=== PATIENT | male | born 1985 | race Caucasian/White ===

== ENCOUNTER 2020-01-17 11:17 | Inpatient (IN) | payer OTHER ==
--- NOTE | 2020-01-17 12:14 | BHS.RME ---
Substance Use & Tx History - Substance Use History Alcohol Substance amount: 6 beers Frequency of use: Daily Substance route: Oral Date of Last Use: 01/16/20 Opiates (Heroin) Substance amount: 3 bags Frequency of use: Daily Substance route: Injection (ex: intravenous or skin popping) Date of Last Use: 01/16/20 Cocaine (Crack) Substance amount: $50 Frequency of use: Daily Substance route: Smoking Date of Last Use: 01/23/20 Cannabis Substance amount: 1 blunt Frequency of use: Less than 3 times per week Substance route: Smoking Date of Last Use: 01/16/20 Cannabis (Synthetic) Substance amount: $20 Frequency of use: Daily Substance route: Smoking Date of Last Use: 01/16/20 Physical/Psych/Mental Status - Behavior General Behavior: Increased activity (restlessness, agitation) Eye Contact: Normal - Cooperativeness Cooperativeness: Cooperative - Thinking Thought Processes: Tight, Goal Directed, Circumstantial Thought content: Future oriented - Physical Health Problems Is patient presently having any pain?: No Does patient presently have any injuries (include location): No Does patient currently have a fever: No Is patient : No
--- NOTE | 2020-01-17 14:05 | HP ---
CIWA Score Nausea/Vomitin-Mild Nausea/No Vomiting Muscle Tremors: 3 Anxiety: 3 Agitation: 3 Paroxysmal Sweats: 1-Minimal Palms Moist Orientation: 0-Oriented Tacttile Disturbances: 1-Very Mild Itch/Numbness Auditory Disturbances: 1-Very Mild Visual Disturbances: 1-Very Mild Sensitivity Headache: 1-Very Mild CIWA-Ar Total Score: 15 - Admission Criteria OASAS Guidelines: Admission for Medically Managed Detox: Requires at least one of the followin. CIWA greater than 12 2. Seizures within the past 24 hours 3. Delirium tremens within the past 24 hours 4. Hallucinations within the past 24 hours 5. Acute intervention needed for co occurring medical disorder 6. Acute intervention needed for co occurring psychiatric disorder 7. Severe withdrawal that cannot be handled at a lower level of care (continued vomiting, continued diarrhea, abnormal vital signs) requiring intravenous medication and/or fluids 8. Admitting History and Physical - Admission Chief Complaint: " I want to stop using drugs and I can't take it anymore." History of Present Illness: 34 year old male with history of opioid dependence , alcohold dependence and crack use disorder, cannabis use disorder and K2 use disorder. He was here in 09/18 and didn't qualify for admission and was sent home Alcohol: 6 beers daily started age 13 and last used 01/16/20 8PM. 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 Heroin 3 bags of heroin daily, intravenously started at age 11 and last used 01/16/20 10AM. He overdosed 6 years ago. Crack: $50 daily smoking since age 18 and last used 01/16/20 at 9Pm Marijuana: 2x/wk 1 blunt, since age 14 and last used yesterday K2: $20 daily smoking since 2009 and last used yesterday. Nicotine: 1 pack daily since age 14 PMH: Asthma, HCVI untreated. Psurge accid Left leg repaired tendon and never 2011 Psych: Depression, Schizophrenia non-compliant last took meds 5 years ago Urinetox: positive for suboxone which he states he bought on the street in attempt to stop using. He meets critera for admission do to his co-morbid psychiatric illness and multiple medical problems. He also has poor environment for recovery as he is homeless. History Source: Patient Limitations to Obtaining History: No Limitations - Past Medical History Pulmonary: Yes: Asthma Hepatobiliary: Yes: Hepatitis C Psych: Yes: Depression, Schizophrenia - Past Surgical History Additional Past Surgical History: left leg repair of tendon and never in 2012 - Smoking History Smoking history: Current every day smoker Have you smoked in the past 12 months: Yes Aproximately how many cigarettes per day: 10 - Alcohol/Substance Use Hx Alcohol Use: No History of Substance Use: reports: Cocaine, Heroin, Marijuana, Tranquilizers - Social History Usual Living Arrangement: Yes: Alone Do you think of yourself as: Straight/Heterosexual ADL: Independent 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 Loss EENT: reports: No Symptoms Reported Respiratory: reports: No Symptoms reported Cardiac: reports: No Symptoms Reported GI: reports: No Symptoms Reported : reports: No Symptoms Reported Musculoskeletal: reports: No Symptoms Reported Integumentary: reports: No Symptoms Reported Neuro: reports: No Symptoms reported Endocrine: reports: No Symptoms Reported Hematology: reports: No Symptoms Reported Psychiatric: reports: Judgement Intact, Mood/Affect Appropiate, Orientated x3, Agitated, Anxious, Depressed Other Systems: Reviewed and Negative Patient History - Patient Medical History Hx Asthma: Yes Hx Chronic Obstructive Pulmonary Disease (COPD): No Hx Cardiac Disorders: No Hx Hypertension: No Hx Seizures: No Hx Diabetes: No Hx Gastrointestinal Disorders: No Hx Genitourinary Disorders: No Hx Sexually Transmitted Disorders: No Hx Renal Disease (ESRD): No Hx Depression: Yes Hx Suicide Attempt: Yes (Tried to cut his L arm in 2016) Hx Schizophrenia: No - Patient Surgical History Past Surgical History: No - PPD History Previous Implant?: Yes Documented Results: Negative w/o proof Implanted On Prior [facility] Admission?: No PPD to be Administered?: Yes - Smoking Cessation Smoking history: Current every day smoker Have you smoked in the past 12 months: Yes Aproximately how many cigarettes per day: 10 Hx Chewing Tobacco Use: No Initiated information on smoking cessation: Yes 'Breaking Loose' booklet given: 01/17/20 - Substances abused Alcohol Substance route: Oral Frequency: Daily Amount used: 6 beers Age of first use: 13 Date of last use: 01/16/20 Heroin Substance route: Injection Frequency: Daily Amount used: 3 bags Age of first use: 11 Date of last use: 01/16/20 Crack Substance route: Smoking Frequency: Daily Amount used: $50 Age of first use: 18 Date of last use: 01/16/20 Marijuana/Hashish Substance route: Smoking Frequency: 1-2 times per week Amount used: 1 bag Age of first use: 14 Date of last use: 01/16/20 K2/Spice Substance route: Smoking Frequency: Daily Amount used: $20 Age of first use: 24 Date of last use: 01/16/20 Admission Physical Exam BHS - Vital Signs Vital Signs: Vital Signs - 24 hr 01/17/20 01/17/20 12:26 13:06 Temperature 97.2 F L 97.2 F L Pulse Rate 87 87 Respiratory 19 19 Rate Blood Pressure 133/75 133/75 - Physical General Appearance: Yes: Moderate Distress, Irritable, Sweating, Anxious HEENTM: Yes: EOMI, Hearing grossly Normal, Normal ENT Inspection, Normocephalic, Normal Voice, [place], Pharynx Normal, Tm's normal Respiratory: Yes: Chest Non-Tender, Lungs Clear, Normal Breath Sounds, No R espiratory Distress, No Accessory Muscle Use Neck: Yes: No masses,lesions,Nodules, Supple, Trachea in good position Breast: Yes: Within Normal Limits Cardiology: Yes: Regular Rhythm, Regular Rate, S1, S2 Abdominal: Yes: Non Tender, Flat, Soft, Increased Bowel Sounds Genitourinary: Yes: Within Normal Limits Back: Yes: Normal Inspection Musculoskeletal: Yes: full range of Motion, Gait Steady, Pelvis Stable Extremities: Yes: Normal Capillary Refill, Normal Inspection, Normal Range of Motion, Non-Tender Neurological: Yes: automation qtp tester II-XII NML intact, Fully Oriented, Alert, Motor Strength 5/5, Normal Mood/Affect, Normal Response Integumentary: Yes: Normal Color, Dry, Warm Lymphatic: Yes: Within Normal Limits - Diagnostic (1) Opioid dependence with withdrawal Current Visit: Yes Status: Acute (2) Cocaine use disorder Current Visit: Yes Status: Acute (3) Alcohol dependence with withdrawal Current Visit: Yes Status: Acute (4) Hepatitis C antibody test positive Current Visit: Yes Status: Acute (5) Depression Current Visit: Yes Status: Acute (6) Schizophrenia Current Visit: Yes Status: Acute Screened but not Admitted - Documentation of Visit Screened but not Admitted: No Breathalyzer - Breathalyzer Breathalyzer: 0 Urine Drug Screen - Test Device Lot number: [id number] Expiration date: 06/29/21 - Control Is test valid?: Yes - Results Drug screen NEGATIVE: No Urine drug screen results: CICI-Cocaine, FEN-Fentanyl, MOP-Opiates, BZO- Benzodiazepines, BUP-Suboxone Inpatient Rehab Admission - Rehab Decision to Admit Inpatient rehab admission?: No
[2020-01-17] MEDS ORDERED: NICOTINE POLACRILEX 2 MG GUM BUC PRN (14:11)
[2020-01-17] MEDS ORDERED: MENTHOL/PHENOL 1 EACH UD MM PRN (14:11)
[2020-01-17] MEDS ORDERED: METHADONE HCL 10 MG TABLET (FOR DETOX USE ONLY) PO ONE (14:11)
[2020-01-17] MEDS ORDERED: ONDANSETRON *ODT* 4 MG TABLET SL ONE (14:11)
[2020-01-17] MEDS ORDERED: IBUPROFEN 400 MG TABLET (FP) PO PRN (14:11)
[2020-01-17] MEDS ORDERED: MAGNESIUM CITRATE 300 ML BOTTLE PO PRN (14:11)
[2020-01-17] MEDS ORDERED: MAG HYDROX/AL HYDROX/SIMETH 30 ML UNIT-DOSE CUP PO PRN (14:11)
[2020-01-17] MEDS ORDERED: BISMUTH SUBSALICYLATE 524 MG/30 ML UD PO PRN (14:11)
[2020-01-17] MEDS ORDERED: MAGNESIUM HYDROX 2400MG/30ML ORAL SUSPENSION 30 ML CUP PO PRN (14:11)
[2020-01-17] MEDS ORDERED: cloNIDine HCL 0.1 MG TABLET PO PRN (14:11)
[2020-01-17] MEDS ORDERED: ACETAMINOPHEN 325 MG TABLET (FP) PO PRN ×2 (14:11)
[2020-01-17] MEDS: PRENATAL VITAMINS W/ FOLIC ACID TABLET (FP) PO SCH (14:56)
--- NOTE | 2020-01-17 14:58 | PN ---
[facility] Progress Note Note: Vital Signs Temperature 97.9 F 01/17/20 14:52 Pulse Rate 50 L 01/17/20 14:52 Respiratory Rate 16 01/17/20 14:52 Blood Pressure 117/64 01/17/20 14:52 O2 Sat by Pulse Oximetry (%) 98 01/17/20 14:52 alerted by staff to low HR interviewed pt, has withdrawal sx: back pain no hx of cardiac disease initially seated then ambulating to window for medication Exam: Pulse is regular, slow mentation: nl gait: steady Impression: bradycardia Plan: will continue to monitor vitals bradycardia may relate to recent heroin use
[2020-01-17] MEDS: NICOTINE 7 MG/24 HOURS TOPICAL PATCH TD SCH (15:02)
--- NOTE | 2020-01-17 16:45 | CONSULT ---
[facility] Psychiatric Consult - Data Date of interview: 01/17/20 Admission source: [facility] Identifying data: Second visit to [facility] and admission to [address] [place] [address] for this 34 y/o [place] male self-referred for detoxification treatment. SARAH issues : cannabis/K2, cocaine, heroin, nicotine, alcohol, benzodiazepine (clonazepam). Patient is single, a father of one, homeless, unemployed and supported on food stamps. Substance Abuse History: Discussed with the patient. SARAH profile as follows : Smoking history: Current every day smoker. Have you smoked in the past 12 months: Yes. Aproximately how many cigarettes per day: 10. Hx Chewing Tobacco Use: No. Initiated information on smoking cessation: Yes. 'Breaking Loose' booklet given: 01/17/20. - Substances abused. Alcohol. Substance route: Oral. Frequency: Daily. Amount used: 6 beers. Age of first use: 13. Date of last use: 01/16/20. Heroin. Substance route: Injection. Frequency: Daily. Amount used: 3 bags. Age of first use: 11. Date of last use: 01/16/20. Crack. Substance route: Smoking. Frequency: Daily. Amount used: $50. Age of first use: 18. Date of last use: 01/16/20. Marijuana/Hashish. Substance route: Smoking. Frequency: 1-2 times per week. Amount used: 1 bag. Age of first use: 14. Date of last use: 01/16/20. K2/Spice. Substance route: Smoking. Frequency: Daily. Amount used: $20. Age of first use: 24. Date of last use: 01/16/20 Medical History: Medical profile is remarkable for hepatitis C (untreated), bronchial and antecedent of surgery for serious injuries to left leg (tendon repair) sustained in kicking a glass door (2011). Reported allergy to ASA. Psychiatric History: Patient endorses a history of multiple psychiatric hospitalizations in his elim ira [facility] ([facility] No hospitalization in the [facility]. Mr Espinoza states that he got diagnosed with MDD and Anxiety Disorder. He used to be prescribed a regimen of bupropion + clonazepam + restoril in the past. NOT taken for past 3-5 years (as per self- report). Patient reports total non-adherence to follow-up. He has been self- medicating with suboxone (bought in the streets). No reported history of suicide attempts. Physical/Sexual Abuse/Trauma History: Patient denies history of abuse. Additional Comment: Urine drug screen results: CICI-Cocaine, FEN-Fentanyl, MOP- Opiates, BZO-Benzodiazepines, BUP-Suboxone. Noted. Mental Status Exam - Mental Status Exam Alert and Oriented to: Time, Place, Person Cognitive Function: Good Patient Appearance: Unkempt, Disheveled (covered with tattoos : upper extremities) Mood: Nervous, Anxious Affect: Appropriate, Mood Congruent Patient Behavior: Fatigued, Appropriate, Cooperative Speech Pattern: Clear, Appropriate Voice Loudness: Normal Thought Process: Goal Oriented Thought Disorder: Not Present Hallucinations: Denies Suicidal Ideation: Denies Homicidal Ideation: Denies Insight/Judgement: Poor Sleep: Poorly, Difficulty falling asleep Appetite: Good Gait/Station: Normal Psychiatric Findings - Problem List ([place] 1, 2,3) (1) Alcohol dependence with withdrawal Current Visit: Yes Status: Acute (2) Opioid dependence with withdrawal Current Visit: Yes Status: Acute (3) Cocaine use disorder Current Visit: Yes Status: Chronic (4) Cannabis abuse Current Visit: Yes Status: Chronic (5) Nicotine dependence Current Visit: Yes Status: Chronic (6) Substance induced mood disorder Current Visit: Yes Status: Chronic (7) History of depression Current Visit: Yes Status: Chronic Comment: As per self-report. Off medications for past 3-5 years. (8) Insomnia Current Visit: Yes Status: Chronic - Initial Treatment Plan Initial Treatment Plan: Psychoeducation. Sleep hygiene. Detoxification initiated. Support and reassurance provided to the patient. AA/NA meetings. Insomnia is addressed with melatonin at bedtime. Patient is in agreement with this plan of care. Observation.
[2020-01-17 17:07] LABS: HEMATOCRIT 41.4 % (35.4-49); HEMOGLOBIN 13.5 GM/dL (11.7-16.9); MCHC 32.5 g/dl (32.0-35.9); MEAN CELL VOLUME 89.3 fl (80-96); MEAN PLT VOLUME 8.3 fl (7.5-11.1); PLATELET COUNT 323 K/MM3 (134-434); RBC 4.64 M/mm3 (4.00-5.60)
[2020-01-17 17:10] LABS: ALBUMIN 3.7 g/dl (3.4-5.0); BILIRUBIN,TOTAL 0.3 mg/dL (0.2-1); BLOOD UREA NITROGEN 16.4 mg/dL (7-18); CALCIUM 9.2 mg/dL (8.5-10.1); CREATININE 0.9 mg/dL (0.55-1.3); POTASSIUM 4.3 mmol/L (3.5-5.1); TOT PROT 7.2 g/dl (6.4-8.2)
[2020-01-17] MEDS: chlordiazePOXIDE HCL 25 MG CAPSULE PO SCH ×2 (18:09→23:12)
[2020-01-17] MEDS: hydrOXYzine PAMOATE 25 MG CAPSULE (FP) PO SCH ×2 (18:09→23:01)
--- NOTE | 2020-01-17 22:30 | PN ---
S Progress Note Note: Patient c/o sweating and feeling ill. Admitted earlier for opioid and alcohol detox. Patient w/ current hx suboxone treatment and admitted w/ + MOP/FEN/CICI/BZO/BUP. PMH: Asthma Denies chest pain/SOB OBS: Pupils = 5 mm Perfuse diaphoresis Hyperactive bowel sounds. HR: 54 No edema. Vital Signs - 24 hr 01/17/20 01/17/20 01/17/20 12:26 13:06 14:52 Temperature 97.2 F L 97.2 F L 97.9 F Pulse Rate 87 87 50 L Respiratory 19 19 16 Rate Blood Pressure 133/75 133/75 117/64 O2 Sat by Pulse 98 Oximetry (%) 01/17/20 01/17/20 16:37 21:16 Temperature 98.2 F 98.2 F Pulse Rate 54 L 59 L Respiratory 18 18 Rate Blood Pressure 119/64 124/65 O2 Sat by Pulse 99 Oximetry (%) Stat EKG: Shows: Sinus Bradycardia (49) w/ sinus arrhythmia and Septal Infarct: age undetermined. Plan: D/C Vistaril. Monitor v/s Q1H x 4 and notify Provider if HR decreases below 49. Hold next dose of Librium 50 mg. Give 25 mg instead. Reviewed respiratory hygiene.
[2020-01-17] MEDS: chlordiazePOXIDE HCL 25 MG CAPSULE PO PRN (23:10)
[2020-01-17] MEDS: THIAMINE HCL 100 MG TABLET (FP) PO SCH (23:11)
[2020-01-17] MEDS: MELATONIN 5 MG TABLETS PO SCH (23:12)
[2020-01-18] MEDS: chlordiazePOXIDE HCL 25 MG CAPSULE PO SCH ×4 (05:18→22:07)
[2020-01-18] MEDS ORDERED: METHADONE HCL 5 MG TABLET (FOR DETOX USE ONLY) ONE (09:31)
[2020-01-18] MEDS ORDERED: METHADONE HCL 10 MG TABLET (FOR DETOX USE ONLY) ONE (09:31)
[2020-01-18] MEDS ORDERED: METHADONE (DETOX) 20 MG, METHADONE (DETOX) 5 MG PO ONE (10:00)
[2020-01-18] MEDS: PRENATAL VITAMINS W/ FOLIC ACID TABLET (FP) PO SCH (10:14)
[2020-01-18] MEDS: NICOTINE 7 MG/24 HOURS TOPICAL PATCH TD SCH (10:16)
--- NOTE | 2020-01-18 11:04 | PN ---
S CIWA - CIWA Score Nausea/Vomitin-No Nausea/No Vomiting Muscle Tremors: None Anxiety: 3 Agitation: 0-Normal Activity Paroxysmal Sweats: 3 Orientation: 0-Oriented Tacttile Disturbances: 0-None Auditory Disturbances: 0-None Visual Disturbances: 0-None Headache: 2-Mild CIWA-Ar Total Score: 8 BHS Progress Note (SOAP) Subjective: c/o sweats, headache, and anxiety. Objective: 01/18/20 11:03 Vital Signs 01/18/20 01/18/20 01/18/20 04:11 06:30 08:44 Temperature 98.0 F 98.4 F Pulse Rate 51 L 58 L Respiratory 16 18 16 Rate Blood Pressure 114/69 120/65 O2 Sat by Pulse 97 Oximetry (%) Laboratory Last Values WBC 10.0 K/mm3 (4.0-10.0) 01/17/20 14:00 RBC 4.64 M/mm3 (4.00-5.60) 01/17/20 14:00 Hgb 13.5 GM/dL (11.7-16.9) 01/17/20 14:00 Hct 41.4 % (35.4-49) 01/17/20 14:00 MCV 89.3 fl (80-96) 01/17/20 14:00 MCH 29.0 pg (25.7-33.7) 01/17/20 14:00 MCHC 32.5 g/dl (32.0-35.9) 01/17/20 14:00 RDW 14.0 % (11.9-15.9) 01/17/20 14:00 Plt Count 323 K/MM3 (134-434) 01/17/20 14:00 MPV 8.3 fl (7.5-11.1) 01/17/20 14:00 Sodium 141 mmol/L (136-145) 01/17/20 14:00 Potassium 4.3 mmol/L (3.5-5.1) 01/17/20 14:00 Chloride 105 mmol/L (98-107) 01/17/20 14:00 Carbon Dioxide 29 mmol/L (21-32) 01/17/20 14:00 Anion Gap 7 MMOL/L (8-16) L 01/17/20 14:00 BUN 16.4 mg/dL (7-18) 01/17/20 14:00 Creatinine 0.9 mg/dL (0.55-1.3) 01/17/20 14:00 Est GFR (CKD-EPI)AfAm 126.90 01/17/20 14:00 Est GFR (CKD-EPI)NonAf 109.49 01/17/20 14:00 Random Glucose 82 mg/dL (74-106) 01/17/20 14:00 Calcium 9.2 mg/dL (8.5-10.1) 01/17/20 14:00 Total Bilirubin 0.3 mg/dL (0.2-1) 01/17/20 14:00 AST 42 U/L (15-37) H 01/17/20 14:00 ALT 41 U/L (13-61) 01/17/20 14:00 Alkaline Phosphatase 60 U/L (45-117) 01/17/20 14:00 Total Protein 7.2 g/dl (6.4-8.2) 01/17/20 14:00 Albumin 3.7 g/dl (3.4-5.0) 01/17/20 14:00 Labs noted. Assessment: 01/18/20 11:03 AOX3, in no acute respiratory distress. Full ROM, ambulating in the unit. Withdrawal symptoms. Plan: continue detox.
[2020-01-18] MEDS ORDERED: FLU VACCINE QUAD 60 MCG/0.5 ML (MDV 19-20) IM ONE (12:00)
[2020-01-18] MEDS: chlordiazePOXIDE HCL 25 MG CAPSULE PO PRN (14:02)
[2020-01-18] MEDS: METHOCARBAMOL 500 MG TABLET PO PRN (14:02)
--- NOTE | 2020-01-18 19:04 | PN ---
[facility] Progress Note Note: Patient is referred for limping. On exam, patient denies foot pain or injury. He is noted walking without limping or any signs of pain. He reports he has been wearing the same soaks for 3 weeks. He reports h/o neuropathy in both feet. Vital Signs Temperature 97.7 F 01/18/20 18:52 Pulse Rate 58 L 01/18/20 18:52 Respiratory Rate 18 01/18/20 18:52 Blood Pressure 127/70 01/18/20 18:52 O2 Sat by Pulse Oximetry (%) 99 01/18/20 12:30 PE Sole of bilateral feet without erythema or signs of infection. He has dry flat yellow callous mostly to the sole of the left foot. Patient has been counselled to take daily showers with foot care. Tylenol for pain Monitoring ongoing d/w nursing
[2020-01-18] MEDS: THIAMINE HCL 100 MG TABLET (FP) PO SCH (22:07)
[2020-01-18] MEDS: MELATONIN 5 MG TABLETS PO SCH (22:07)
[2020-01-19] MEDS: chlordiazePOXIDE HCL 25 MG CAPSULE PO SCH ×4 (05:50→22:06)
[2020-01-19] MEDS ORDERED: METHADONE HCL 10 MG TABLET (FOR DETOX USE ONLY) PO ONE (10:00)
[2020-01-19] MEDS: PRENATAL VITAMINS W/ FOLIC ACID TABLET (FP) PO SCH (10:05)
[2020-01-19] MEDS: NICOTINE 7 MG/24 HOURS TOPICAL PATCH TD SCH (10:06)
--- NOTE | 2020-01-19 15:01 | PN ---
[facility] CIWA - CIWA Score Nausea/Vomitin-No Nausea/No Vomiting Muscle Tremors: 2 Anxiety: 2 Agitation: 0-Normal Activity Paroxysmal Sweats: 2 Orientation: 0-Oriented Tacttile Disturbances: 1-Very Mild Itch/Numbness Auditory Disturbances: 0-None Visual Disturbances: 0-None Headache: 0-None Present CIWA-Ar Total Score: 7 BHS COWS - Scale Resting Pulse: 1= [place] 81-100 Sweatin= Chills/Flushing Restless Observation: 0= Sits Still Pupil Size: 1= Pupils >than Normal Bone or Joint Aches: 0= None Runny Nose/ Eye Tearin= None GI Upset > 30mins: 2= Nausea/Diarrhea Tremor Observation of Outstretched Hands: 1= Tremor [place], Not Seen Yawning Observation: 0= None Anxiety or Irritability: 1=Feels Anxious/Irritable Goose Flesh Skin: 0=Smooth Skin COWS Score: 7 S Progress Note (SOAP) Subjective: 34 years old male admitted on 01/17/20 for alcohol and opiate withdrawal sx management treating wtih librium and methadone detox regiments reports wear shoes 5 days without taking it off walking with same shoes 5 day sore of both planta of the feet skin intact no erythema no swell none tender but flat callus on both feet below the big toes toes free movement requests fungal cream for his feet clotrimazole cream bid Objective: 01/19/20 15:04 Vital Signs Temperature 97.8 F 01/19/20 08:31 Pulse Rate 90 01/19/20 08:31 Respiratory Rate 16 01/19/20 08:31 Blood Pressure 112/74 01/19/20 08:31 O2 Sat by Pulse Oximetry (%) 95 01/19/20 06:23 Laboratory Last Values WBC 10.0 K/mm3 (4.0-10.0) 01/17/20 14:00 RBC 4.64 M/mm3 (4.00-5.60) 01/17/20 14:00 Hgb 13.5 GM/dL (11.7-16.9) 01/17/20 14:00 Hct 41.4 % (35.4-49) 01/17/20 14:00 MCV 89.3 fl (80-96) 01/17/20 14:00 MCH 29.0 pg (25.7-33.7) 01/17/20 14:00 MCHC 32.5 g/dl (32.0-35.9) 01/17/20 14:00 RDW 14.0 % (11.9-15.9) 01/17/20 14:00 Plt Count 323 K/MM3 (134-434) 01/17/20 14:00 MPV 8.3 fl (7.5-11.1) 01/17/20 14:00 Sodium 141 mmol/L (136-145) 01/17/20 14:00 Potassium 4.3 mmol/L (3.5-5.1) 01/17/20 14:00 Chloride 105 mmol/L (98-107) 01/17/20 14:00 Carbon Dioxide 29 mmol/L (21-32) 01/17/20 14:00 Anion Gap 7 MMOL/L (8-16) L 01/17/20 14:00 BUN 16.4 mg/dL (7-18) 01/17/20 14:00 Creatinine 0.9 mg/dL (0.55-1.3) 01/17/20 14:00 Est GFR (CKD-EPI)AfAm 126.90 01/17/20 14:00 Est GFR (CKD-EPI)NonAf 109.49 01/17/20 14:00 Random Glucose 82 mg/dL (74-106) 01/17/20 14:00 Calcium 9.2 mg/dL (8.5-10.1) 01/17/20 14:00 Total Bilirubin 0.3 mg/dL (0.2-1) 01/17/20 14:00 AST 42 U/L (15-37) H 01/17/20 14:00 ALT 41 U/L (13-61) 01/17/20 14:00 Alkaline Phosphatase 60 U/L (45-117) 01/17/20 14:00 Total Protein 7.2 g/dl (6.4-8.2) 01/17/20 14:00 Albumin 3.7 g/dl (3.4-5.0) 01/17/20 14:00 RPR Titer Nonreactive (NONREACTIVE) 01/17/20 14:00 lab noted Assessment: 01/19/20 15:04 alcohol and opiate withdrawal Plan: librium and methadon regiments
[2020-01-19] MEDS: CLOTRIMAZOLE 1% CREAM 15 GM TUBE TP SCH (15:39)
[2020-01-19] MEDS: chlordiazePOXIDE HCL 25 MG CAPSULE PO PRN (15:56)
[2020-01-19] MEDS: MELATONIN 5 MG TABLETS PO SCH (22:06)
[2020-01-19] MEDS: THIAMINE HCL 100 MG TABLET (FP) PO SCH (22:06)
[2020-01-20] MEDS ORDERED: chlordiazePOXIDE HCL 10 MG CAPSULE PO PRN
[2020-01-20] MEDS: chlordiazePOXIDE HCL 10 MG CAPSULE PO SCH ×4 (05:13→22:08)
[2020-01-20] MEDS ORDERED: METHADONE HCL 10 MG TABLET (FOR DETOX USE ONLY) ONE (08:38)
[2020-01-20] MEDS ORDERED: METHADONE HCL 5 MG TABLET (FOR DETOX USE ONLY) ONE (08:38)
[2020-01-20] MEDS ORDERED: METHADONE (DETOX) 10 MG, METHADONE (DETOX) 5 MG PO ONE (10:00)
[2020-01-20] MEDS: PRENATAL VITAMINS W/ FOLIC ACID TABLET (FP) PO SCH (10:03)
[2020-01-20] MEDS: CLOTRIMAZOLE 1% CREAM 15 GM TUBE TP SCH ×3 (10:05→22:08)
[2020-01-20] MEDS: NICOTINE 7 MG/24 HOURS TOPICAL PATCH TD SCH (10:06)
--- NOTE | 2020-01-20 10:07 | PN ---
[facility] CIWA - CIWA Score Nausea/Vomitin-Mild Nausea/No Vomiting Muscle Tremors: 2 Anxiety: 2 Agitation: 2 Paroxysmal Sweats: No Perspiration Orientation: 0-Oriented Tacttile Disturbances: 1-Very Mild Itch/Numbness Auditory Disturbances: 0-None Visual Disturbances: 0-None Headache: 1-Very Mild CIWA-Ar Total Score: 9 BHS COWS - Scale Resting Pulse: 0= [place] 80 or Below Sweatin= No chills or Flushing Restless Observation: 0= Sits Still Pupil Size: 1= Pupils >than Normal Bone or Joint Aches: 1= Mild Discomfort Runny Nose/ Eye Tearin= Nasal Congestion GI Upset > 30mins: 1= Stomach Cramp Tremor Observation of Outstretched Hands: 1= Tremor [place], Not Seen Yawning Observation: 1= 1-2x During Session Anxiety or Irritability: 2=Irritable/Anxious Goose Flesh Skin: 0=Smooth Skin COWS Score: 8 [facility] Progress Note (SOAP) Subjective: alert,irritable,anxious,interrupted sleep,pain in the body and back Objective: 01/20/20 10:06 Vital Signs Temperature 97 F L 01/20/20 08:30 Pulse Rate 77 01/20/20 08:30 Respiratory Rate 18 01/20/20 08:30 Blood Pressure 115/72 01/20/20 08:30 O2 Sat by Pulse Oximetry (%) 98 01/20/20 06:30 Assessment: 01/20/20 10:06 withdrawal symptom Plan: continue detox methadone and librium regimen
--- NOTE | 2020-01-20 17:59 | DS ---
[facility] Detox Discharge Summary Admission Date: 01/17/20 - Physical Exam Results Vital Signs: Vital Signs Temperature 99 F 01/20/20 17:34 Pulse Rate 79 01/20/20 17:34 Respiratory Rate 16 01/20/20 17:34 Blood Pressure 117/71 01/20/20 17:34 O2 Sat by Pulse Oximetry (%) 97 01/20/20 14:30 - Medication Discharge Medications: Ambulatory Orders Albuterol Sulfate Inhaler - [Ventolin HFA Inhaler -] 2 inhaler PO Q4HWA PRN 09/18/19 Buprenorphine/Naloxone [Suboxone 8 mg/2Mg Sl Film -] 1 each SL TID 01/17/20
[2020-01-20] MEDS: hydrOXYzine PAMOATE 25 MG CAPSULE (FP) PO PRN (19:11)
[2020-01-20] MEDS ORDERED: traZODone HCL 50 MG TABLET (FP) PO ONE (22:00)
[2020-01-20] MEDS: THIAMINE HCL 100 MG TABLET (FP) PO SCH (22:08)
[2020-01-20] MEDS: METHOCARBAMOL 500 MG TABLET PO PRN (22:09)
[2020-01-20] MEDS: MELATONIN 5 MG TABLETS PO SCH (22:09)
[2020-01-21] MEDS: chlordiazePOXIDE HCL 10 MG CAPSULE PO SCH ×2 (05:11→17:10)
[2020-01-21] MEDS ORDERED: METHADONE HCL 10 MG TABLET (FOR DETOX USE ONLY) PO ONE (10:00)
[2020-01-21] MEDS: CLOTRIMAZOLE 1% CREAM 15 GM TUBE TP SCH ×2 (10:22→21:29)
[2020-01-21] MEDS: NICOTINE 7 MG/24 HOURS TOPICAL PATCH TD SCH (10:23)
[2020-01-21] MEDS: PRENATAL VITAMINS W/ FOLIC ACID TABLET (FP) PO SCH (10:26)
--- NOTE | 2020-01-21 11:51 | PN ---
S CIWA - CIWA Score Nausea/Vomitin-No Nausea/No Vomiting Muscle Tremors: 2 Anxiety: 2 Agitation: 0-Normal Activity Paroxysmal Sweats: 2 Orientation: 0-Oriented Tacttile Disturbances: 0-None Auditory Disturbances: 0-None Visual Disturbances: 1-Very Mild Sensitivity Headache: 0-None Present CIWA-Ar Total Score: 7 BHS COWS - Scale Resting Pulse: 0= [place] 80 or Below Sweatin= Chills/Flushing Restless Observation: 0= Sits Still Pupil Size: 0= Normal to Room Light Bone or Joint Aches: 1= Mild Discomfort Runny Nose/ Eye Tearin= Nasal Congestion GI Upset > 30mins: 1= Stomach Cramp Tremor Observation of Outstretched Hands: 1= Tremor [place], Not Seen Yawning Observation: 1= 1-2x During Session Anxiety or Irritability: 1=Feels Anxious/Irritable Goose Flesh Skin: 0=Smooth Skin COWS Score: 7 BHS Progress Note (SOAP) Subjective: Others' Prescriptions Patient Name: Izaiah Trotter Date: 1985 Address: [address] [place] [address] Sex: Male Rx Written Rx Dispensed Drug Quantity Days Supply Prescriber Name Payment Method Dispenser suboxone 8 mg-2 mg sl film 42 14 Kieran Frost Medicaid [facility] suboxone 8 mg-2 mg sl film 21 7 Kieran Frost [facility] suboxone 8 mg-2 mg sl film 24 8 Lori Mederos Medicaid [facility] suboxone 8 mg-2 mg sl film 21 7 Kieran Frost Medicaid [facility] suboxone 8 mg-2 mg sl film 24 8 Lori Mederos Medicaid [facility] suboxone 8 mg-2 mg sl film 18 6 Bharat Palomino T Medicaid [facility] buprenorphine-naloxone 8-2 mg sl film 42 14 Kieran Frost [facility] buprenorphine-naloxone 8-2 mg sl film 21 7 Kieran Frost [facility] buprenorphine-naloxone 8-2 mg sl film 14 7 Kieran Frost [facility] Date: 1985 Address: [address] [facility] [place] [address] Sex: Male Rx Written Rx Dispensed Drug Quantity Days Supply Prescriber Name Payment Method chlordiazepoxide 25 mg capsule 8 2 Steven Garcia Medicaid Dispenser [facility] [employer] [facility] Bed[facility] 34 years old male admitted on 01/17/20 for alcohol and opiate withdrawal sx management treting with librium and methadone detox regiment feeling better less tremor taking suboxne 8-2mg po tid last filled 14 days on 01/08/20 positive suboxone UTox upon admission Objective: 01/21/20 11:55 Vital Signs Temperature 97.8 F 01/21/20 09:06 Pulse Rate 80 01/21/20 09:06 Respiratory Rate 16 01/21/20 09:06 Blood Pressure 99/69 01/21/20 09:06 O2 Sat by Pulse Oximetry (%) 100 01/21/20 05:00 Laboratory Last Values WBC 10.0 K/mm3 (4.0-10.0) 01/17/20 14:00 RBC 4.64 M/mm3 (4.00-5.60) 01/17/20 14:00 Hgb 13.5 GM/dL (11.7-16.9) 01/17/20 14:00 Hct 41.4 % (35.4-49) 01/17/20 14:00 MCV 89.3 fl (80-96) 01/17/20 14:00 MCH 29.0 pg (25.7-33.7) 01/17/20 14:00 MCHC 32.5 g/dl (32.0-35.9) 01/17/20 14:00 RDW 14.0 % (11.9-15.9) 01/17/20 14:00 Plt Count 323 K/MM3 (134-434) 01/17/20 14:00 MPV 8.3 fl (7.5-11.1) 01/17/20 14:00 Sodium 141 mmol/L (136-145) 01/17/20 14:00 Potassium 4.3 mmol/L (3.5-5.1) 01/17/20 14:00 Chloride 105 mmol/L (98-107) 01/17/20 14:00 Carbon Dioxide 29 mmol/L (21-32) 01/17/20 14:00 Anion Gap 7 MMOL/L (8-16) L 01/17/20 14:00 BUN 16.4 mg/dL (7-18) 01/17/20 14:00 Creatinine 0.9 mg/dL (0.55-1.3) 01/17/20 14:00 Est GFR (CKD-EPI)AfAm 126.90 01/17/20 14:00 Est GFR (CKD-EPI)NonAf 109.49 01/17/20 14:00 Random Glucose 82 mg/dL (74-106) 01/17/20 14:00 Calcium 9.2 mg/dL (8.5-10.1) 01/17/20 14:00 Total Bilirubin 0.3 mg/dL (0.2-1) 01/17/20 14:00 AST 42 U/L (15-37) H 01/17/20 14:00 ALT 41 U/L (13-61) 01/17/20 14:00 Alkaline Phosphatase 60 U/L (45-117) 01/17/20 14:00 Total Protein 7.2 g/dl (6.4-8.2) 01/17/20 14:00 Albumin 3.7 g/dl (3.4-5.0) 01/17/20 14:00 RPR Titer Nonreactive (NONREACTIVE) 01/17/20 14:00 lab noted Assessment: 01/21/20 11:55 alcohol and opiate withdrawal Plan: librium and methadone regiments
[2020-01-21] MEDS: THIAMINE HCL 100 MG TABLET (FP) PO SCH (21:28)
[2020-01-21] MEDS: MELATONIN 5 MG TABLETS PO SCH (21:28)
[2020-01-21] MEDS: METHOCARBAMOL 500 MG TABLET PO PRN (21:29)
[2020-01-21] MEDS: hydrOXYzine PAMOATE 25 MG CAPSULE (FP) PO PRN (21:29)
[2020-01-22] MEDS ORDERED: chlordiazePOXIDE HCL 10 MG CAPSULE PO ONE (05:00)
[2020-01-22 05:53] VITALS: BP 113/65; PULSE 79; TEMP 97.6
[2020-01-22] MEDS ORDERED: METHADONE HCL 5 MG TABLET (FOR DETOX USE ONLY) PO ONE (06:00)
--- NOTE | 2020-01-22 11:08 | DS ---
[facility] Detox Discharge Summary Admission Date: 01/17/20 Discharge Date: 01/22/20 - History Present History: Alcohol Dependence, Opioid Dependence Additional Comments: 34 years old male admitted on 01/17/20 for alcohol and opiate withdrawal sx management treated with librium and methadone detox regiments seen by psychiatrist no medical intervention Mr Espinoza has completed the librium and methadone regiments and is tolerated well alert oriented x 3 respiratory clear lung sounds bilaterally on auscultation abdomen soft no rebound tenderness skin warm and dry Pertinent Past History: time for discharge 35 minutes patient will return to suboxone provider for medical and mental issues patient prefers to continue suboxone for opiate addiction - Physical Exam Results Vital Signs: Vital Signs Temperature 97.6 F 01/22/20 05:52 Pulse Rate 79 01/22/20 05:52 Respiratory Rate 18 01/22/20 05:52 Blood Pressure 113/65 01/22/20 05:52 O2 Sat by Pulse Oximetry (%) 95 01/22/20 05:52 Pertinent Admission Physical Exam Findings: alcohol and opiate withdrawal Vital Signs Temperature 97.6 F 01/22/20 05:52 Pulse Rate 79 01/22/20 05:52 Respiratory Rate 18 01/22/20 05:52 Blood Pressure 113/65 01/22/20 05:52 O2 Sat by Pulse Oximetry (%) 95 01/22/20 05:52 Laboratory Last Values WBC 10.0 K/mm3 (4.0-10.0) 01/17/20 14:00 RBC 4.64 M/mm3 (4.00-5.60) 01/17/20 14:00 Hgb 13.5 GM/dL (11.7-16.9) 01/17/20 14:00 Hct 41.4 % (35.4-49) 01/17/20 14:00 MCV 89.3 fl (80-96) 01/17/20 14:00 MCH 29.0 pg (25.7-33.7) 01/17/20 14:00 MCHC 32.5 g/dl (32.0-35.9) 01/17/20 14:00 RDW 14.0 % (11.9-15.9) 01/17/20 14:00 Plt Count 323 K/MM3 (134-434) 01/17/20 14:00 MPV 8.3 fl (7.5-11.1) 01/17/20 14:00 Sodium 141 mmol/L (136-145) 01/17/20 14:00 Potassium 4.3 mmol/L (3.5-5.1) 01/17/20 14:00 Chloride 105 mmol/L (98-107) 01/17/20 14:00 Carbon Dioxide 29 mmol/L (21-32) 01/17/20 14:00 Anion Gap 7 MMOL/L (8-16) L 01/17/20 14:00 BUN 16.4 mg/dL (7-18) 01/17/20 14:00 Creatinine 0.9 mg/dL (0.55-1.3) 01/17/20 14:00 Est GFR (CKD-EPI)AfAm 126.90 01/17/20 14:00 Est GFR (CKD-EPI)NonAf 109.49 01/17/20 14:00 Random Glucose 82 mg/dL (74-106) 01/17/20 14:00 Calcium 9.2 mg/dL (8.5-10.1) 01/17/20 14:00 Total Bilirubin 0.3 mg/dL (0.2-1) 01/17/20 14:00 AST 42 U/L (15-37) H 01/17/20 14:00 ALT 41 U/L (13-61) 01/17/20 14:00 Alkaline Phosphatase 60 U/L (45-117) 01/17/20 14:00 Total Protein 7.2 g/dl (6.4-8.2) 01/17/20 14:00 Albumin 3.7 g/dl (3.4-5.0) 01/17/20 14:00 RPR Titer Nonreactive (NONREACTIVE) 01/17/20 14:00 lab noted - Treatment Hospital Course: Detox Protocol Followed, Detoxed Safely, Responded well, Discharged Condition Good, Rehab Referral Accepted Patient has Accepted a Rehab Referral to: [facility] - Medication Discharge Medications: Ambulatory Orders Albuterol Sulfate Inhaler - [Ventolin HFA Inhaler -] 2 inhaler PO Q4HWA PRN 09/18/19 Buprenorphine/Naloxone [Suboxone 8Mg/2Mg Sl Film -] 1 each SL TID 01/17/20 - Diagnosis (1) Encounter for monitoring Suboxone maintenance therapy Status: Chronic (2) Alcohol dependence with withdrawal Status: Acute Qualifiers: Complication of substance-induced condition: uncomplicated Qualified Co de(s): F10.230 - Alcohol dependence with withdrawal, uncomplicated (3) Hepatitis C antibody test positive Status: Chronic (4) Nicotine dependence Status: Acute Qualifiers: Nicotine product type: cigarettes Substance use status: in withdrawal Qualified Code(s): F17.213 - Nicotine dependence, cigarettes, with withdrawal (5) Substance induced mood disorder Status: Suspected - AMA Did Patient Leave Against Medical Advice: No CIWA Score - CIWA Score Nausea/Vomitin-No Nausea/No Vomiting Muscle Tremors: 1-None Visible, but [place] Anxiety: 1-Mildly Anxious Agitation: 0-Normal Activity Paroxysmal Sweats: 1-Minimal Palms Moist Orientation: 0-Oriented Tacttile Disturbances: 0-None Auditory Disturbances: 0-None Visual Disturbances: 1-Very Mild Sensitivity Headache: 0-None Present CIWA-Ar Total Score: 4
--- NOTE | 2020-01-25 18:21 | EKG ---
Test Reason : Blood Pressure : / mmHG Vent. Rate : 045 BPM Atrial Rate : 045 BPM P-R Int : 156 ms QRS Dur : 090 ms QT Int : 446 ms P-R-T Axes : 069 070 016 degrees QTc Int : 385 ms SINUS BRADYCARDIA POSSIBLE SEPTAL INFARCT , AGE UNDETERMINED ST ELEVATION CONSISTENT WITH EARLY REPOLARIZATION VARIANT ABNORMAL ECG NO PREVIOUS ECGS AVAILABLE Confirmed by MILY VALIENTE MD ([id number]) on 01/25/2020 6:21:03 PM Referred By: KATI MIRELES Confirmed By:MILY VALIENTE MD
== END 2020-01-22 08:29 | disposition home or self-care (01) | DRG 773 ==
LOC: YASAS 11:17 → Y3N 14:29
PROVIDERS: ADMIT Allergy & Immunology; ATTEND Allergy & Immunology
PROC: HZ2ZZZZ Detoxification Services for Substance Abuse Treatment (ICD-10-PCS; principal; 2020-01-17)
DX: F10.230 Alcohol dependence with withdrawal, uncomplicated (principal); F11.23 Opioid dependence with withdrawal; F14.20 Cocaine dependence, uncomplicated; F19.20 Other psychoactive substance dependence, uncomplicated; F12.10 Cannabis abuse, uncomplicated; F17.210 Nicotine dependence, cigarettes, uncomplicated; F19.24 Other psychoactive substance dependence with psychoactive substance-induced mood disorder; F20.9 Schizophrenia, unspecified; F41.8 Other specified anxiety disorders; F32.9 Major depressive disorder, single episode, unspecified; B18.2 Chronic viral hepatitis C; G47.00 Insomnia, unspecified; B35.3 Tinea pedis; L84 Corns and callosities; B00.1 Herpesviral vesicular dermatitis; Z88.6 Allergy status to analgesic agent; Z91.5 Personal history of self-harm; Z56.0 Unemployment, unspecified; Z59.0 Homelessness
CPT/HCPCS: 36415; 80053; 85027; 86593; 93005; 93010; J0735; Q0162

== ENCOUNTER 2020-06-26 12:16 | Inpatient (IN) | payer OTHER ==
--- NOTE | 2020-06-26 12:44 | BHS.RME ---
Substance Use & Tx History - Substance Use History Alcohol Substance amount: 6-7 beers Frequency of use: Daily Substance route: Oral Date of Last Use: 06/25/20 Heroin Substance amount: 15-20 bags Frequency of use: Daily Substance route: Inhalation (ex: sniffing or snorting), Injection (ex: intravenous or skin popping) (skin popping) Date of Last Use: 06/26/20 Cocaine-Crack Substance amount: $20 Frequency of use: Daily Substance route: Smoking Date of Last Use: 06/25/20 Marijuana/Hashish Substance amount: 1 blunt Frequency of use: Less than 3 times per week Substance route: Smoking Date of Last Use: 06/25/20 Synthetic Cannabinoid Substance amount: k2 15-20 bags Frequency of use: Daily Substance route: Smoking Date of Last Use: 06/25/20 Physical/Psych/Mental Status - Behavior General Behavior: Increased activity (restlessness, agitation) Eye Contact: Normal Other Behaviors: Stereotypes - Cooperativeness Cooperativeness: Cooperative - Thinking Thought Processes: Tight, Logical, Goal Directed - Physical Health Problems Is patient presently having any pain?: No Does patient presently have any injuries (include location): No Does patient currently have a fever: No Is patient : No COWS - Scale Resting Pulse: 1= [place] 81-100 Sweatin= Chills/Flushing Restless Observation: 1= Difficult to Sit Still Pupil Size: 1= Pupils >than Normal Bone or Joint Aches: 2= Severe Diffuse Aches Runny Nose/ Eye Tearin= Runny Nose/Eyes GI Upset > 30mins: 1= Stomach Cramp Tremor Observation: 1= Tremor [place], Not Seen Yawning Observation: 1= 1-2x During Session Anxiety or Irritability: 1=Feels Anxious/Irritable Goose Flesh Skin: 3=Piloerection COWS Score: 15 CIWA Nausea/Vomitin-Mild Nausea/No Vomiting Muscle Tremors: 3 Anxiety: 3 Agitation: 3 Paroxysmal Sweats: 3 Orientation: 0-Oriented Tacttile Disturbances: 1-Very Mild Itch/Numbness Auditory Disturbances: 1-Very Mild Visual Disturbances: 1-Very Mild Sensitivity Headache: 1-Very Mild CIWA-Ar Total Score: 17
--- NOTE | 2020-06-26 13:36 | HP ---
COWS - Scale Resting Pulse: 1= [place] 81-100 Sweatin= Chills/Flushing Restless Observation: 1= Difficult to Sit Still Pupil Size: 1= Pupils >than Normal Bone or Joint Aches: 2= Severe Diffuse Aches Runny Nose/ Eye Tearin= Runny Nose/Eyes GI Upset > 30mins: 1= Stomach Cramp Tremor Observation: 1= Tremor [place], Not Seen Yawning Observation: 1= 1-2x During Session Anxiety or Irritability: 1=Feels Anxious/Irritable Goose Flesh Skin: 3=Piloerection COWS Score: 15 CIWA Score Nausea/Vomitin-Mild Nausea/No Vomiting Muscle Tremors: 3 Anxiety: 3 Agitation: 3 Paroxysmal Sweats: 3 Orientation: 0-Oriented Tacttile Disturbances: 1-Very Mild Itch/Numbness Auditory Disturbances: 1-Very Mild Visual Disturbances: 1-Very Mild Sensitivity Headache: 1-Very Mild CIWA-Ar Total Score: 17 - Admission Criteria [facility] Guidelines: Admission for Medically Managed Detox: Requires at least one of the followin. CIWA greater than 12 2. Seizures within the past 24 hours 3. Delirium tremens within the past 24 hours 4. Hallucinations within the past 24 hours 5. Acute intervention needed for co occurring medical disorder 6. Acute intervention needed for co occurring psychiatric disorder 7. Severe withdrawal that cannot be handled at a lower level of care (continued vomiting, continued diarrhea, abnormal vital signs) requiring intravenous medication and/or fluids 8. Admitting History and Physical - Admission History of Present Illness: Patient is a 35 y.o. M presenting to [facility] for detox. Patient substance use consists of alcohol 7 beers a day no seizures, no blackouts, (+) eye tool maker, Heroin 15-20 bags a day snorting no overdoses, crack 20$ a day, marijuana 3x a week 1 blunt, K2 15-20 bags a day. - Substance Use History Alcohol Substance amount: 6-7 beers Frequency of use: Daily Substance route: Oral Date of Last Use: 06/25/20 Heroin Substance amount: 15-20 bags Frequency of use: Daily Substance route: Inhalation (ex: sniffing or snorting), Injection (ex: intravenous or skin popping) (skin popping) Date of Last Use: 06/26/20 Cocaine-Crack Substance amount: $20 Frequency of use: Daily Substance route: Smoking Date of Last Use: 06/25/20 Marijuana/Hashish Substance amount: 1 blunt Frequency of use: Less than 3 times per week Substance route: Smoking Date of Last Use: 06/25/20 Synthetic Cannabinoid Substance amount: k2 15-20 bags Frequency of use: Daily Substance route: Smoking Date of Last Use: 06/25/20 Limitations to Obtaining History: No Limitations - Past Medical History Pulmonary: Yes: Asthma Hepatobiliary: Yes: Hepatitis C Psych: Yes: Depression, Schizophrenia - Past Surgical History Additional Past Surgical History: LLE has hardware placed - Smoking History Smoking history: Current every day smoker Have you smoked in the past 12 months: Yes Aproximately how many cigarettes per day: 20 - Alcohol/Substance Use Hx Alcohol Use: No History of Substance Use: reports: Cocaine, Heroin, Marijuana, Tranquilizers - Social History ADL: Independent 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 Allergies/Adverse Reactions: Allergies Allergy/AdvReac Type Severity Reaction Status Date / Time aspirin AdvReac Rash Verified 06/26/20 13:54 Exam Limitations: No Limitations - Ebola screening Have you traveled outside of the country in the last 21 days: No Have you had contact with anyone from an Ebola affected area: No Have you been sick,other than usual withdrawal symptoms: No Do you have a fever: No - Review of Systems Constitutional: No Symptoms Reported EENT: reports: No Symptoms Reported Respiratory: denies: Cough, Shortness of Breath Cardiac: denies: Chest Pain GI: denies: Nausea, Vomiting Musculoskeletal: reports: Back Pain Psychiatric: reports: No Sypmtoms Reported, Judgement Intact, Mood/Affect Appropiate, Orientated x3 Patient History - Patient Medical History Hx Asthma: Yes Hx Chronic Obstructive Pulmonary Disease (COPD): No Hx Cardiac Disorders: No Hx Hypertension: No Hx Seizures: No Hx Diabetes: No Hx Gastrointestinal Disorders: No Hx Genitourinary Disorders: No Hx Sexually Transmitted Disorders: No Hx Renal Disease (ESRD): No Hx Hepatitis C: Yes (untreated) Hx Depression: Yes Hx Suicide Attempt: Yes (TO GET ATTENTION IN SENIOR CARE) Hx Schizophrenia: No - Patient Surgical History Past Surgical History: No Hx Neurologic Surgery: No Hx Cataract Extraction: No Hx Cardiac Surgery: No Hx Lung Surgery: No Hx Breast Surgery: No Hx Breast Biopsy: No Hx Abdominal Surgery: No Hx Appendectomy: No Hx Cholecystectomy: No Hx Genitourinary Surgery: No Hx Section: No Hx Orthopedic Surgery: No Anesthesia Reaction: No - PPD History Date: 01/19/20 - Smoking Cessation Smoking history: Current every day smoker Have you smoked in the past 12 months: Yes Aproximately how many cigarettes per day: 20 Hx Chewing Tobacco Use: No Initiated information on smoking cessation: Yes 'Breaking Loose' booklet given: 06/26/20 - Substances abused Heroin Substance route: Skin popping Frequency: Daily Amount used: 15-20 BAGS Age of first use: 13 Date of last use: 06/25/20 Alcohol Substance route: Oral Frequency: Daily Amount used: 6-7 BEERS Age of first use: 13 Date of last use: 06/25/20 Crack Substance route: Smoking Frequency: Daily Amount used: $20 Age of first use: 26 Date of last use: 06/25/20 K2/Spice Substance route: Smoking Frequency: Daily Amount used: 15-20 BAGS Age of first use: 34 Date of last use: 06/25/20 Marijuana/Hashish Substance route: Smoking Frequency: 3-6 times per week Amount used: 1 BLUNT Age of first use: 11 Date of last use: 06/25/20 Admission Physical Exam S - Physical General Appearance: Yes: Within Normal Limits, No Apparent Distress, Nourished, Appropriately Dressed Respiratory: Yes: Within Normal Limits, Lungs Clear, Normal Breath Sounds, No Respiratory Distress, No Accessory Muscle Use Cardiology: Yes: Within Normal Limits, Regular Rhythm, Regular Rate Abdominal: Yes: Normal Bowel Sounds, Non Tender, Flat, Soft Extremities: Yes: Normal Inspection, Non-Tender Neurological: Yes: Fully Oriented, Alert, Normal Mood/Affect, Normal Response Integumentary: Yes: Normal Color, Dry, Warm - Diagnostic (1) Alcohol dependence with withdrawal Current Visit: No Status: Acute Qualifiers: Complication of substance-induced condition: uncomplicated Qualified Code(s): F10.230 - Alcohol dependence with withdrawal, uncomplicated (2) Cocaine use disorder Current Visit: No Status: Acute (3) Depression Current Visit: No Status: Acute (4) Opioid dependence with withdrawal Current Visit: No Status: Acute (5) Opioid use disorder, mild, on maintenance therapy, abuse Current Visit: No Status: Acute (6) Cannabis abuse Current Visit: No Status: Chronic (7) Hepatitis C antibody test positive Current Visit: No Status: Chronic (8) History of depression Current Visit: No Status: Chronic Comment: As per self-report. Off medications for past 3-5 years. (9) Nicotine dependence Current Visit: No Status: Chronic Qualifiers: Nicotine product type: cigarettes Substance use status: in withdrawal Qualified Code(s): F17.213 - Nicotine dependence, cigarettes, with withdrawal (10) Substance induced mood disorder Current Visit: No Status: Suspected Cleared for Admission [facility] - Detox or Rehab [facility] Level of Care: Medically Managed Detox Regimen/Protocol: Librium, Methadone Claeared for Rehab Admission: No Breathalyzer - Breathalyzer Breathalyzer: 0 Vital Signs - Vital Signs Vital signs refused: No Temperature: 97.9 F Pulse Rate: 66 Respiratory Rate: 18 Blood Pressure: 108/69 - Height Height: 1.88 m - Weight Weight: 73.482 kg - BMI Body Mass Index (BMI): 20.7 Urine Drug Screen - Test Device Lot number: [id number] Expiration date: 06/02/22 - Control Is test valid?: Yes - Results Drug screen NEGATIVE: No Urine drug screen results: FEN-Fentanyl, MOP-Opiates Inpatient Rehab Admission - Rehab Decision to Admit Inpatient rehab admission?: No
[2020-06-26 13:43] VITALS: BMI 20.7
[2020-06-26] MEDS ORDERED: ONDANSETRON *ODT* 4 MG TABLET SL ONE (13:43)
[2020-06-26] MEDS ORDERED: BISMUTH SUBSALICYLATE 524 MG/30 ML UD PO PRN (13:43)
[2020-06-26] MEDS ORDERED: IBUPROFEN 400 MG TABLET (FP) PO PRN (13:43)
[2020-06-26] MEDS ORDERED: MENTHOL/PHENOL 1 EACH UD MM PRN (13:43)
[2020-06-26] MEDS ORDERED: chlordiazePOXIDE HCL 25 MG CAPSULE PO PRN (13:43)
[2020-06-26] MEDS ORDERED: MAG HYDROX/AL HYDROX/SIMETH 30 ML UNIT-DOSE CUP PO PRN (13:43)
[2020-06-26] MEDS ORDERED: ACETAMINOPHEN 325 MG TABLET (FP) PO PRN ×2 (13:43)
[2020-06-26] MEDS ORDERED: METHADONE HCL 10 MG TABLET (FOR DETOX USE ONLY) PO ONE (13:43)
[2020-06-26] MEDS ORDERED: MAGNESIUM HYDROX 2400MG/30ML ORAL SUSPENSION 30 ML CUP PO PRN (13:43)
[2020-06-26] MEDS ORDERED: NICOTINE POLACRILEX 2 MG GUM BUC PRN (13:43)
[2020-06-26] MEDS ORDERED: cloNIDine HCL 0.1 MG TABLET PO PRN (13:43)
[2020-06-26] MEDS ORDERED: MAGNESIUM CITRATE 300 ML BOTTLE PO PRN (13:43)
[2020-06-26] MEDS ORDERED: ALBUTEROL SO4 HFA INHALER IH PRN (13:46)
[2020-06-26] MEDS ORDERED: METHADONE HCL 10 MG TABLET (FOR DETOX USE ONLY) ONE (14:29)
[2020-06-26] MEDS: hydrOXYzine PAMOATE 25 MG CAPSULE (FP) PO SCH ×3 (15:14→22:08)
[2020-06-26] MEDS: METHOCARBAMOL 500 MG TABLET PO PRN (17:45)
--- NOTE | 2020-06-26 17:58 | CONSULT ---
[facility] Psychiatric Consult - Data Date of interview: 06/26/20 Admission source: [facility] Identifying data: Readmission to [facility] at [address] [place] [address] for this 35 y/o [place] male, self-referred for detoxification treatment. SARAH issues : cannabis/K2, cocaine, heroin, nicotine, alcohol, benzodiazepine (clonazepam). Patient is single, a father of one, homeless, unemployed and supported on food stamps. Substance Abuse History: Discussed with the patient in this interview. SARAH profile as follows : Alcohol. Substance amount: 6-7 beers. Frequency of use: Daily. Substance route: Oral. Date of Last Use: 06/25/20. Heroin. Substance amount: 15-20 bags. Frequency of use: Daily. Substance route: Inhalation (ex: sniffing or snorting), Injection (ex: intravenous or skin popping) (skin popping). Date of Last Use: 06/26/20. Cocaine-Crack. Subst ance amount: $20. Frequency of use: Daily. Substance route: Smoking. Date of Last Use: 06/25/20. Marijuana/Hashish. Substance amount: 1 blunt. Frequency of use: Less than 3 times per week. Substance route: Smoking. Date of Last Use: 06/25/20. Synthetic Cannabinoid. Substance amount: k2 15-20 bags. Frequency of use: Daily. Substance route: Smoking. Date of Last Use: 06/25/20. Limitations to Obtaining History: No Limitations. Smoking history: Current every day smoker. Have you smoked in the past 12 months: Yes. Aproximately how many cigarettes per day: 20. Hx Chewing Tobacco Use: No. Initiated information on smoking cessation: Yes. 'Breaking Loose' booklet given: 06/26/20. - Substances abused. Heroin. Substance route: Skin popping. Frequency: Daily. Amount used: 15-20 BAGS. Age of first use: 13. Date of last use: 06/25/20. Alcohol. Substance route: Oral. Frequency: Daily. Amount used: 6-7 BEERS. Age of first use: 13. Date of last use: 06/25/20. Crack. Substance route: Smoking. Frequency: Daily. Amount used: $20. Age of first use: 26. Date of last use: 06/25/20. K2/Spice. Substance route: Smoking. Frequency: Daily. Amount used: 15-20 BAGS. Age of first use: 34. Date of last use: 06/25/20. Marijuana/Hashish. Substance route: Smoking. Frequency: 3-6 times per week. Amount used: 1 BLUNT. Age of first use: 11. Date of last use: 06/25/20. History of multiple SARAH treatment failures. Medical History: Medical profile is remarkable for hepatitis C (untreated), bronchial and antecedent of surgery for serious injuries to left leg (tendon repair) sustained in kicking a glass door (2011). Patient reports allergy to ASA. Psychiatric History: In this interview, the patient denies history of psychiatric hospitalizations, OPD care or suicide attempts. Records ([facility]) demonstrate otherwise as evidenced by this imported note from this speech writer (entered on 01/17/20) : " Patient endorses a history of multiple psychiatric hospitalizations in his knik [facility] ([facility]). No hospitalization in the [facility]. Mr Espinoza states that he got diagnosed with MDD an d Anxiety Disorder. He used to be prescribed a regimen of bupropion + clonazepam + restoril in the past. NOT taken for past 3-5 years (as per self-report). Patient reports total non-adherence to follow-up. He has been self-medicating with suboxone (bought in the streets). No reported history of suicide attempts." End of quotation. Physical/Sexual Abuse/Trauma History: Patient denies history of abuse. Additional Comment: Urine drug screen results: FEN-Fentanyl, MOP-Opiates. Noted. Mental Status Exam - Mental Status Exam Alert and Oriented to: Time, Place, Person Cognitive Function: Good Patient Appearance: Well Groomed Mood: Nervous, Hopeful Affect: Appropriate, Normal Range Patient Behavior: Fatigued Speech Pattern: Clear, Appropriate Voice Loudness: Normal Thought Process: Goal Oriented Thought Disorder: Not Present Hallucinations: Denies Suicidal Ideation: Denies Homicidal Ideation: Denies Insight/Judgement: Poor Sleep: Poorly, Difficulty falling asleep Appetite: Good Gait/Station: Normal Psychiatric Findings - Problem List ([place] 1, 2,3) (1) Alcohol dependence with withdrawal Current Visit: Yes Status: Acute Qualifiers: Complication of substance-induced condition: uncomplicated Qualified Code(s): F10.230 - Alcohol dependence with withdrawal, uncomplicated (2) Opioid dependence with withdrawal Current Visit: Yes Status: Acute (3) Cocaine use disorder Current Visit: Yes Status: Chronic (4) Cannabis abuse Current Visit: Yes Status: Chronic (5) Nicotine dependence Current Visit: Yes Status: Chronic Qualifiers: Nicotine product type: cigarettes Substance use status: in withdrawal Qualified Code(s): F17.213 - Nicotine dependence, cigarettes, with withdrawal (6) Substance induced mood disorder Current Visit: Yes Status: Chronic (7) Insomnia Current Visit: Yes Status: Chronic - Initial Treatment Plan Initial Treatment Plan: Psychoeducation. Sleep hygiene. Support. Detoxification in progress. Insomnia is addressed with suvorexant 5 mg po hs prn. Side effects/benefits discussed with patient and vconsent (verbal) granted. Observation.
[2020-06-26] MEDS ORDERED: SUVOREXANT 5 MG TABLET PO PRN (22:00)
[2020-06-26] MEDS: THIAMINE HCL 100 MG TABLET (FP) PO SCH (22:06)
[2020-06-26] MEDS: MELATONIN 5 MG TABLETS PO SCH (22:06)
[2020-06-26] MEDS: chlordiazePOXIDE HCL 25 MG CAPSULE PO SCH (22:08)
[2020-06-27] MEDS: chlordiazePOXIDE HCL 25 MG CAPSULE PO SCH ×4 (05:39→22:37)
[2020-06-27] MEDS: hydrOXYzine PAMOATE 25 MG CAPSULE (FP) PO SCH ×5 (05:39→22:37)
[2020-06-27] MEDS ORDERED: METHADONE HCL 5 MG TABLET (FOR DETOX USE ONLY) ONE (09:18)
[2020-06-27] MEDS ORDERED: METHADONE HCL 10 MG TABLET (FOR DETOX USE ONLY) ONE (09:18)
--- NOTE | 2020-06-27 09:53 | PN ---
[facility] CIWA - CIWA Score Nausea/Vomitin-Mild Nausea/No Vomiting Muscle Tremors: 2 Anxiety: 3 Agitation: 1-Slight > Activity Paroxysmal Sweats: 3 Orientation: 0-Oriented Tacttile Disturbances: 0-None Auditory Disturbances: 0-None Visual Disturbances: 0-None Headache: 1-Very Mild CIWA-Ar Total Score: 11 BHS COWS - Scale Resting Pulse: 0= DC 80 or Below Sweatin= Chills/Flushing Restless Observation: 1= Difficult to Sit Still Pupil Size: 0= Normal to Room Light Bone or Joint Aches: 2= Severe Diffuse Aches Runny Nose/ Eye Tearin= None GI Upset > 30mins: 1= Stomach Cramp Tremor Observation of Outstretched Hands: 2= Slight Tremor Visible Yawning Observation: 2= >3x During Session Anxiety or Irritability: 2=Irritable/Anxious Goose Flesh Skin: 0=Smooth Skin COWS Score: 11 S Progress Note (SOAP) Subjective: c/o stomach cramps, nausea, muscle aches, headache, anxiety, and sweats. Objective: 06/27/20 09:52 Vital Signs 06/27/20 06/27/20 05:33 08:54 Temperature 99.1 F 98.6 F Pulse Rate 58 L 71 Respiratory 20 16 Rate Blood Pressure 111/56 L 118/74 O2 Sat by Pulse 98 Oximetry (%) Labs pending. Assessment: 06/27/20 09:53 AOX3, in no acute respiratory distress. Full ROM, ambulating in the unit. Withdrawal symptoms. Plan: continue detox.
[2020-06-27] MEDS ORDERED: METHADONE (DETOX) 20 MG, METHADONE (DETOX) 5 MG PO ONE (10:00)
[2020-06-27] MEDS: NICOTINE 7 MG/24 HOURS TOPICAL PATCH TD SCH (10:11)
[2020-06-27] MEDS: PRENATAL VITAMINS W/ FOLIC ACID TABLET (FP) PO SCH (10:11)
[2020-06-27 12:29] LABS: HEMATOCRIT 36.4 % (35.4-49); MCH 29.5 pg (25.7-33.7); MCHC 32.8 g/dl (32.0-35.9); MEAN CELL VOLUME 89.9 fl (80-96); MEAN PLT VOLUME 8.6 fl (7.5-11.1); PLATELET COUNT 297 K/MM3 (134-434); RBC 4.05 M/mm3 (4.00-5.60); WHITE BLOOD COUNT 7.7 K/mm3 (4.0-10.0)
[2020-06-27 12:45] LABS: ALBUMIN 4.4 g/dl (3.4-5.0); BLOOD UREA NITROGEN 17.3 mg/dL (7-18); CALCIUM 9.4 mg/dL (8.5-10.1); POTASSIUM 4.1 mmol/L (3.5-5.1)
[2020-06-27 12:48] LABS: BILIRUBIN,TOTAL 0.4 mg/dL (0.2-1); CREATININE 0.7 mg/dL (0.55-1.3); TOT PROT 7.8 g/dl (6.4-8.2)
[2020-06-27] MEDS: THIAMINE HCL 100 MG TABLET (FP) PO SCH (22:37)
[2020-06-27] MEDS: MELATONIN 5 MG TABLETS PO SCH (22:37)
[2020-06-28] MEDS: hydrOXYzine PAMOATE 25 MG CAPSULE (FP) PO SCH ×2 (05:44→10:16)
[2020-06-28] MEDS: chlordiazePOXIDE HCL 25 MG CAPSULE PO SCH ×4 (05:44→22:13)
[2020-06-28] MEDS ORDERED: METHADONE HCL 10 MG TABLET (FOR DETOX USE ONLY) PO ONE (10:00)
[2020-06-28] MEDS: METHOCARBAMOL 500 MG TABLET PO PRN (10:15)
[2020-06-28] MEDS: NICOTINE 7 MG/24 HOURS TOPICAL PATCH TD SCH (10:16)
[2020-06-28] MEDS: PRENATAL VITAMINS W/ FOLIC ACID TABLET (FP) PO SCH (10:16)
--- NOTE | 2020-06-28 11:30 | PN ---
Psychiatric Progress Note Vital Signs: Vital Signs Period Temp Pulse Resp BP Sys/Christiansen Pulse Ox Last 24 Hr 96.8 F-97.8 F 52-103 18-18 106-127/60-77 99-100 Date of Session: 06/28/20 Chief Complaint:: " I was frustrated so i told staff do you want me to hang myself." HPI: Patient admitted to for cannabis/K2, cocaine, heroin, nicotine, alcohol, benzodiazepine (clonazepam). Consultation ordered due to patient stating he was going to hang himself. Stat consulted ordered for assessment of suicidal ideation. ROS: Patient is ambulatory, restless but cooperative. Current Medications: Active Medications Generic Name Dose Route Start Last Admin Trade Name Freq PRN Reason Stop Dose Admin Acetaminophen 650 mg 06/26/20 13:43 Tylenol - PO Q6H PRN PAIN LEVEL 4 - 6 Acetaminophen 650 mg 06/26/20 13:43 Tylenol - PO Q6H PRN FEVER Al Hydroxide/Mg Hydroxide 30 ml 06/26/20 13:43 Mylanta Oral Suspension - PO Q6H PRN DYSPEPSIA Albuterol Sulfate 1 puff 06/26/20 13:46 Ventolin Hfa Inhaler - IH Q4HWA PRN ASTHMA Bismuth Subsalicylate 524 mg 06/26/20 13:43 Pepto-Bismol - PO Q1H PRN DIARRHEA Chlordiazepoxide HCl 25 mg 06/28/20 05:00 06/28/20 10:15 Librium - PO 06/28/20 23:01 25 mg [id number] LEYDI Administration Chlordiazepoxide HCl 25 mg 06/26/20 13:43 06/26/20 15:12 Librium - PO 06/28/20 23:59 25 mg Q4H PRN Administration WITHDRAWAL(CONT SUBST) Chlordiazepoxide HCl 10 mg 06/29/20 05:00 Librium - PO 06/29/20 23:01 [id number] LEYDI Chlordiazepoxide HCl 10 mg 06/30/20 05:00 Librium - PO 06/30/20 17:01 Q12H LEYDI Chlordiazepoxide HCl 10 mg 06/29/20 00:00 Librium - PO 06/30/20 00:00 Q4H PRN WITHDRAWAL(CONT SUBST) Chlordiazepoxide HCl 10 mg 07/01/20 05:00 Librium - PO 07/01/20 05:01 ONCE@0500 ONE Clonidine 0.1 mg 06/26/20 13:43 Catapres - PO 06/28/20 23:59 Q4H PRN Withdrawal Symptoms Eucalyptus/Menthol/Phenol/Sorbitol 1 each 06/26/20 13:43 Cepastat Lozenge - MM 07/02/20 13:43 Q4H PRN SORE THROAT Hydroxyzine Pamoate 25 mg 06/26/20 14:00 06/28/20 10:16 Vistaril - PO 07/02/20 13:43 25 mg Q4HWA LEYDI Administration Ibuprofen 400 mg 06/26/20 13:43 Motrin - PO Q6H PRN PAIN LEVEL 1 - 3 Magnesium Citrate 300 ml 06/26/20 13:43 Citroma - PO Q48H PRN CONSTIPATION Magnesium Hydroxide 30 ml 06/26/20 13:43 Milk Of Magnesia - PO PRN PRN CONSTIPATION Melatonin 5 mg 06/26/20 22:00 06/27/20 22:37 Melatonin PO 5 mg HS LEYDI Administration Methadone HCl 10 mg 06/30/20 10:00 Dolophine - PO 06/30/20 10:01 ONCE ONE Methadone HCl 10 mg/ Methadone 15 mg 06/29/20 10:00 HCl 5 mg PO 06/29/20 10:01 ONCE ONE Methadone HCl 5 mg 07/01/20 06:00 Dolophine - PO 07/01/20 06:01 ONCE@0600 ONE Methocarbamol 500 mg 06/26/20 13:43 06/28/20 10:15 Robaxin - PO 07/02/20 13:43 500 mg Q6H PRN Administration MUSCLE SPASMS Nicotine 7 mg 06/27/20 10:00 06/28/20 10:16 Nicoderm Patch - TD 7 mg DAILY LEYDI Administration Nicotine Polacrilex 2 mg 06/26/20 13:43 Nicorette Gum - BUC Q2H PRN NICOTINE REPLACEMENT RX Multivit/Folic Acid/Iron 1 tab 06/27/20 10:00 06/28/20 10:16 Vitamins (Sjr) - PO 1 tab DAILY LEYDI Administration Suvorexant 5 mg 06/26/20 22:00 Belsomra PO HS PRN INSOMNIA Thiamine HCl 100 mg 06/26/20 22:00 06/27/20 22:37 Vitamin B1 - PO 100 mg HS LEYDI Administration Medication(s) Change(s): Yes. 1) Will d/c Belsomra 5mg PRN +Vistaril 25mg q4h. 2) Will order Belsomra 5mg HS (scheduled) + Vistaril 50mg q6h + Trazodone 100mg HS. Patient reports favorable effects from accepting trazodone in the past. Benefits and side effects discussed. Verbal consent given. Current Side Effect: No Lab tests ordered: No Lab tests reviewed: Yes Provider note:: Patient seen by Dr. Coppola. Dr. Coppola note read and appreciated. Patient with a history of substance induced mood disorder. Self reports a diagnosis of MDD and anxiety disorder. Mr. Espinoza reports frustration due to his inability to sleep effectively throughout the night. He reports sleeping intermittently and waking up sweating profusely. In addition he reports becoming upset earlier today after he was speaking to one of his peers in the day room and another peer asked him to speak in scottish. Patient's primary language in icelandic. Mr. Lazaro also reports diffficulty with communicating with the nursing staff due to the language barrier. Stated the frustration was building up inside and this morning became upset after he requested to call [place] and and his request was initially denied which prompted patient to state to staff, " what do you want me to do, Hang myself." Mr. Espinoza reports making that statement in frustration. 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 I am almost done with treatment. I said it because i was upset." Patient with a history of one suicide attempt via cutting (forearm) which he acknowledges. Patient requesting an effective sleep aid for tonight. Patient ordered Belsomra [address] Coppola but patient has yet to receive dosage. Changes to be made to Mr. Sterling medication regiman. (review section on medication changes). 1:1 to be discontinued. Multid isciplinary team aware of decision. Total face to face time:: 25 Mental Status Exam - Mental Status Exam Alert and Oriented to: Time, Place, Person Cognitive Function: Good Patient Appearance: Well Groomed Mood: Anxious, Hopeful Affect: Mood Congruent Patient Behavior: Appropriate, Cooperative Speech Pattern: Appropriate Voice Loudness: Normal Thought Process: Goal Oriented Thought Disorder: Not Present Hallucinations: Denies Suicidal Ideation: Denies Homicidal Ideation: Denies Insight/Judgement: Poor Sleep: Poorly Appetite: Fair Muscle strength/Tone: Normal Gait/Station: Normal Psychiatric Treatment Plan - Problem List (1) Substance-induced sleep disorder Current Visit: Yes (2) Alcohol dependence with withdrawal Current Visit: Yes Qualifiers: Complication of substance-induced condition: uncomplicated Qualified Code(s): F10.230 - Alcohol dependence with withdrawal, uncomplicated (3) Opioid dependence with withdrawal Current Visit: Yes (4) Cannabis abuse Current Visit: Yes (5) Cocaine use disorder Current Visit: Yes (6) Nicotine dependence Current Visit: Yes Qualifiers: Nicotine product type: cigarettes Substance use status: in withdrawal Qualified Code(s): F17.213 - Nicotine dependence, cigarettes, with withdrawal (7) Substance induced mood disorder Current Visit: Yes
--- NOTE | 2020-06-28 11:56 | PN ---
[facility] CIWA - CIWA Score Nausea/Vomitin-Mild Nausea/No Vomiting Muscle Tremors: 1-None Visible, but [place] Anxiety: 4-Mod. Anxious/Guarded Agitation: 2 Paroxysmal Sweats: No Perspiration Orientation: 0-Oriented Tacttile Disturbances: 0-None Auditory Disturbances: 0-None Visual Disturbances: 0-None Headache: 0-None Present CIWA-Ar Total Score: 8 S COWS - Scale Resting Pulse: 1= [place] 81-100 Sweatin= Chills/Flushing Restless Observation: 0= Sits Still Pupil Size: 1= Pupils >than Normal Bone or Joint Aches: 0= None Runny Nose/ Eye Tearin= None GI Upset > 30mins: 2= Nausea/Diarrhea Tremor Observation of Outstretched Hands: 2= Slight Tremor Visible Yawning Observation: 0= None Anxiety or Irritability: 1=Feels Anxious/Irritable Goose Flesh Skin: 0=Smooth Skin COWS Score: 8 [facility] Progress Note (SOAP) Subjective: 35 years old male was admitted on 06/26/20 for alcohol and opiate withdrawal sx management treating with librium and methadone detox regiment [facility] "I [facility]" history of cut self intention to x 3 latest cut 9 years ago mr hester states that he will not hurt himself due to children and at home who he love very much mr hester is able to contract for safety while in detox but due to past history of self harm 1:1 for suicidal psychiatrist referral Objective: 06/28/20 11:56 Vital Signs - 24 hr 06/27/20 06/27/20 06/27/20 12:50 16:42 20:35 Temperature 97.8 F 96.9 F L 97.3 F L Pulse Rate 103 H 57 L 55 L Respiratory 18 18 18 Rate Blood Pressure 106/60 126/76 127/67 O2 Sat by Pulse 99 99 Oximetry (%) 06/28/20 06/28/20 05:37 08:24 Temperature 97.5 F L 96.8 F L Pulse Rate 52 L 81 Respiratory 18 18 Rate Blood Pressure 114/76 121/77 O2 Sat by Pulse 100 Oximetry (%) Laboratory Tests 06/26/20 06/26/20 06/27/20 13:45 14:30 06:00 WBC 7.7 RBC 4.05 Hgb 12.0 Hct 36.4 MCV 89.9 MCH 29.5 MCHC 32.8 RDW 14.0 Plt Count 297 MPV 8.6 Sodium Potassium Chloride Carbon Dioxide Anion Gap BUN Creatinine Est GFR (CKD-EPI)AfAm Est GFR (CKD-EPI)NonAf Random Glucose Calcium Total Bilirubin AST ALT Alkaline Phosphatase Total Protein Albumin Syphilis Serology Non-reactive COVID-19 (PETER) Not detected 06/27/20 06:00 WBC RBC Hgb Hct MCV MCH MCHC RDW Plt Count MPV Sodium 138 Potassium 4.1 Chloride 108 H Carbon Dioxide 26 Anion Gap 4 L BUN 17.3 Creatinine 0.7 Est GFR (CKD-EPI)AfAm 139.73 Est GFR (CKD-EPI)NonAf 120.56 Random Glucose 79 Calcium 9.4 Total Bilirubin 0.4 AST 32 ALT 67 H Alkaline Phosphatase 61 Total Protein 7.8 Albumin 4.4 Syphilis Serology COVID-19 (PETER) lab noted Assessment: 06/28/20 11:56 alcohol and opiate withdrawal Plan: librium and methadone regiments
[2020-06-28] MEDS: hydrOXYzine PAMOATE 50 MG CAPSULE (FP) PO PRN ×2 (12:53→22:52)
[2020-06-28] MEDS: THIAMINE HCL 100 MG TABLET (FP) PO SCH (22:13)
[2020-06-28] MEDS: traZODone HCL 100 MG TABLET (FP) PO SCH (22:13)
[2020-06-28] MEDS: SUVOREXANT 5 MG TABLET PO SCH (22:14)
[2020-06-28] MEDS: MELATONIN 5 MG TABLETS PO SCH (22:14)
[2020-06-29] MEDS ORDERED: chlordiazePOXIDE HCL 10 MG CAPSULE PO PRN
[2020-06-29] MEDS: chlordiazePOXIDE HCL 10 MG CAPSULE PO SCH ×4 (05:32→22:24)
--- NOTE | 2020-06-29 08:06 | PN ---
Teaching Attending Note Name of Resident: Andre Camargo ATTENDING PHYSICIAN STATEMENT I saw and evaluated the patient. I reviewed the resident's note and discussed the case with the resident. I agree with the resident's findings and plan as documented. SUBJECTIVE: OBJECTIVE: ASSESSMENT AND PLAN: Agree with resident's findings and plan for detox.
[2020-06-29] MEDS ORDERED: METHADONE (DETOX) 10 MG, METHADONE (DETOX) 5 MG PO ONE ×2 (09:00→10:00)
[2020-06-29] MEDS ORDERED: METHADONE HCL 10 MG TABLET (FOR DETOX USE ONLY) ONE (09:16)
[2020-06-29] MEDS ORDERED: METHADONE HCL 5 MG TABLET (FOR DETOX USE ONLY) ONE (09:16)
[2020-06-29] MEDS: METHOCARBAMOL 500 MG TABLET PO PRN (10:09)
[2020-06-29] MEDS: PRENATAL VITAMINS W/ FOLIC ACID TABLET (FP) PO SCH (10:09)
[2020-06-29] MEDS: NICOTINE 7 MG/24 HOURS TOPICAL PATCH TD SCH (10:11)
--- NOTE | 2020-06-29 12:53 | PN ---
S CIWA - CIWA Score Nausea/Vomitin-Mild Nausea/No Vomiting Muscle Tremors: 1-None Visible, but [place] Anxiety: 1-Mildly Anxious Agitation: 0-Normal Activity Paroxysmal Sweats: 1-Minimal Palms Moist Orientation: 0-Oriented Tacttile Disturbances: 1-Very Mild Itch/Numbness Auditory Disturbances: 0-None Visual Disturbances: 0-None Headache: 0-None Present CIWA-Ar Total Score: 5 BHS COWS - Scale Resting Pulse: 1= [place] 81-100 Sweatin= No chills or Flushing Restless Observation: 0= Sits Still Pupil Size: 1= Pupils >than Normal Bone or Joint Aches: 0= None Runny Nose/ Eye Tearin= None GI Upset > 30mins: 1= Stomach Cramp Tremor Observation of Outstretched Hands: 1= Tremor [place], Not Seen Yawning Observation: 0= None Anxiety or Irritability: 1=Feels Anxious/Irritable Goose Flesh Skin: 0=Smooth Skin COWS Score: 5 S Progress Note (SOAP) Subjective: 35 years old male was admitted on 06/26/20 for alcohol and opiate withdrawal sx management treating with librium and methadone detox regiment mr hester requests to have methadone around 6 am because 10 am schedule is "too late" for the opiate withdrawal change methadone detox schedule to meet the need of mr hester Objective: 06/29/20 12:52 Vital Signs - 24 hr 06/28/20 06/28/20 06/29/20 16:23 20:13 05:28 Temperature 97.1 F L 97.1 F L 97.7 F Pulse Rate 81 75 92 H Respiratory 18 18 18 Rate Blood Pressure 114/73 129/68 107/75 O2 Sat by Pulse 100 97 Oximetry (%) 06/29/20 08:43 Temperature 97.1 F L Pulse Rate 98 H Respiratory 18 Rate Blood Pressure 133/79 O2 Sat by Pulse Oximetry (%) Laboratory Tests 06/26/20 06/26/20 06/27/20 13:45 14:30 06:00 WBC 7.7 RBC 4.05 Hgb 12.0 Hct 36.4 MCV 89.9 MCH 29.5 MCHC 32.8 RDW 14.0 Plt Count 297 MPV 8.6 Sodium Potassium Chloride Carbon Dioxide Anion Gap BUN Creatinine Est GFR (CKD-EPI)AfAm Est GFR (CKD-EPI)NonAf Random Glucose Calcium Total Bilirubin AST ALT Alkaline Phosphatase Total Protein Albumin Syphilis Serology Non-reactive COVID-19 (PETER) Not detected 06/27/20 06:00 WBC RBC Hgb Hct MCV MCH MCHC RDW Plt Count MPV Sodium 138 Potassium 4.1 Chloride 108 H Carbon Dioxide 26 Anion Gap 4 L BUN 17.3 Creatinine 0.7 Est GFR (CKD-EPI)AfAm 139.73 Est GFR (CKD-EPI)NonAf 120.56 Random Glucose 79 Calcium 9.4 Total Bilirubin 0.4 AST 32 ALT 67 H Alkaline Phosphatase 61 Total Protein 7.8 Albumin 4.4 Syphilis Serology COVID-19 (PETER) lab noted Assessment: 06/29/20 12:52 alcohol and opiate withdrawal Plan: librium and methadon regiments
[2020-06-29] MEDS: PHENYLEPHRINE HCL/COCOA BUTTER SUPPOSITORY RC SCH (17:20)
[2020-06-29] MEDS: traZODone HCL 100 MG TABLET (FP) PO SCH (22:24)
[2020-06-29] MEDS: THIAMINE HCL 100 MG TABLET (FP) PO SCH (22:24)
[2020-06-29] MEDS: MELATONIN 5 MG TABLETS PO SCH (22:24)
[2020-06-29] MEDS: SUVOREXANT 5 MG TABLET PO SCH (22:24)
[2020-06-30] MEDS: chlordiazePOXIDE HCL 10 MG CAPSULE PO SCH ×2 (05:20→17:46)
[2020-06-30] MEDS ORDERED: METHADONE HCL 10 MG TABLET (FOR DETOX USE ONLY) PO ONE ×2 (06:00→10:00)
[2020-06-30] MEDS: PHENYLEPHRINE HCL/COCOA BUTTER SUPPOSITORY RC SCH (10:03)
[2020-06-30] MEDS: PRENATAL VITAMINS W/ FOLIC ACID TABLET (FP) PO SCH (10:03)
[2020-06-30] MEDS: NICOTINE 7 MG/24 HOURS TOPICAL PATCH TD SCH (10:03)
[2020-06-30] MEDS: METHOCARBAMOL 500 MG TABLET PO PRN (10:05)
[2020-06-30] MEDS: hydrOXYzine PAMOATE 50 MG CAPSULE (FP) PO PRN (11:33)
--- NOTE | 2020-06-30 12:20 | PN ---
[facility] CIWA - CIWA Score Nausea/Vomitin-No Nausea/No Vomiting Muscle Tremors: 1-None Visible, but [place] Anxiety: 1-Mildly Anxious Agitation: 0-Normal Activity Paroxysmal Sweats: No Perspiration Orientation: 0-Oriented Tacttile Disturbances: 0-None Auditory Disturbances: 0-None Visual Disturbances: 1-Very Mild Sensitivity Headache: 0-None Present CIWA-Ar Total Score: 3 S COWS - Scale Resting Pulse: 1= [place] 81-100 Sweatin= No chills or Flushing Restless Observation: 0= Sits Still Pupil Size: 0= Normal to Room Light Bone or Joint Aches: 0= None Runny Nose/ Eye Tearin= None GI Upset > 30mins: 0= None Tremor Observation of Outstretched Hands: 1= Tremor [place], Not Seen Yawning Observation: 0= None Anxiety or Irritability: 1=Feels Anxious/Irritable Goose Flesh Skin: 0=Smooth Skin COWS Score: 3 S Progress Note (SOAP) Subjective: 35 years old male was admitted on 06/26/20 for alcohol and opiate withdrawal sx management treating with librium and methadone detox regiments feels better today less tremor mild anxiety strong recommend mr hester to follow up with medication assisted treatment program as per aftercare referral Objective: 06/30/20 12:29 Vital Signs - 24 hr 06/29/20 06/29/20 06/29/20 12:30 16:18 20:42 Temperature 97.3 F L 97.2 F L 97.9 F Pulse Rate 80 90 73 Respiratory 18 18 18 Rate Blood Pressure 138/83 127/68 123/75 O2 Sat by Pulse 100 100 Oximetry (%) 06/30/20 06/30/20 06:28 08:28 Temperature 97.6 F 97.8 F Pulse Rate 74 94 H Respiratory 18 20 Rate Blood Pressure 102/65 108/77 O2 Sat by Pulse 100 Oximetry (%) Vital Signs - 24 hr Laboratory Tests 06/26/20 06/26/20 06/27/20 13:45 14:30 06:00 WBC 7.7 RBC 4.05 Hgb 12.0 Hct 36.4 MCV 89.9 MCH 29.5 MCHC 32.8 RDW 14.0 Plt Count 297 MPV 8.6 Sodium Potassium Chloride Carbon Dioxide Anion Gap BUN Creatinine Est GFR (CKD-EPI)AfAm Est GFR (CKD-EPI)NonAf Random Glucose Calcium Total Bilirubin AST ALT Alkaline Phosphatase Total Protein Albumin Syphilis Serology Non-reactive COVID-19 (PETER) Not detected 06/27/20 06:00 WBC RBC Hgb Hct MCV MCH MCHC RDW Plt Count MPV Sodium 138 Potassium 4.1 Chloride 108 H Carbon Dioxide 26 Anion Gap 4 L BUN 17.3 Creatinine 0.7 Est GFR (CKD-EPI)AfAm 139.73 Est GFR (CKD-EPI)NonAf 120.56 Random Glucose 79 Calcium 9.4 Total Bilirubin 0.4 AST 32 ALT 67 H Alkaline Phosphatase 61 Total Protein 7.8 Albumin 4.4 Syphilis Serology COVID-19 (PETER) lab noted Assessment: 06/30/20 12:30 alcohol and opiate withdrawal Plan: librium and methadone regiments
[2020-06-30] MEDS: MELATONIN 5 MG TABLETS PO SCH (21:44)
[2020-06-30] MEDS: SUVOREXANT 5 MG TABLET PO SCH (21:44)
[2020-06-30] MEDS: THIAMINE HCL 100 MG TABLET (FP) PO SCH (21:44)
[2020-06-30] MEDS: traZODone HCL 100 MG TABLET (FP) PO SCH (21:44)
[2020-07-01] MEDS ORDERED: chlordiazePOXIDE HCL 10 MG CAPSULE PO ONE (05:00)
[2020-07-01] MEDS ORDERED: METHADONE HCL 5 MG TABLET (FOR DETOX USE ONLY) PO ONE (06:00)
[2020-07-01 06:24] VITALS: BP 120/70; PULSE 79; TEMP 97.9
--- NOTE | 2020-07-01 13:19 | DS ---
[facility] Detox Discharge Summary Admission Date: 06/26/20 Discharge Date: 07/01/20 - History Present History: Alcohol Dependence, Opioid Dependence Additional Comments: 35 years old male was admitted on 06/26/20 for alcohol and opiate withdrawal sx management treated with librium and methadone detox regiments seen by psychiatrist bandar ríos mr hester has completed the librium and methadone regiments and is tolerated well General Appearance: Yes: Within Normal Limits, No Apparent Distress, Nourished, Appropriately Dressed Respiratory: Yes: Within Normal Limits, Lungs Clear, Normal Breath Sounds, No Respiratory Distress, No Accessory Muscle Use Cardiology: Yes: Within Normal Limits, Regular Rhythm, Regular Rate Abdominal: Yes: Normal Bowel Sounds, Non Tender, Flat, Soft Extremities: Yes: Normal Inspection, Non-Tender Neurological: Yes: Fully Oriented, Alert, Normal Mood/Affect, Normal Response Integumentary: Yes: Normal Color, Dry, Warm Pertinent Past History: time for discharge 35 minutes patient left the detox unit around 0810 transportation 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 pick 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 around 0815 to [facility] medication assisted treatment program mr hester voice hang self that he missed his children and family in [facility] reports cut self x 3 as attempted suicide last cut 9 years ago seen by psychiatrist no need for 1:1 for suicidal no medical intervention but allow phone call to [facility] no suicidal expression - Physical Exam Results Vital Signs: Vital Signs Temperature 97.9 F 07/01/20 06:23 Pulse Rate 79 07/01/20 06:23 Respiratory Rate 18 07/01/20 06:23 Blood Pressure 120/70 07/01/20 06:23 O2 Sat by Pulse Oximetry (%) 98 07/01/20 06:23 Pertinent Admission Physical Exam Findings: alcohol and opiate withdrawal Vital Signs - 24 hr 06/30/20 06/30/20 07/01/20 16:34 20:35 06:23 Temperature 97.7 F 98.2 F 97.9 F Pulse Rate 77 77 79 Respiratory 16 18 18 Rate Blood Pressure 121/67 123/78 120/70 O2 Sat by Pulse 100 98 Oximetry (%) Laboratory Tests 06/26/20 06/26/20 06/27/20 13:45 14:30 06:00 WBC 7.7 RBC 4.05 Hgb 12.0 Hct 36.4 MCV 89.9 MCH 29.5 MCHC 32.8 RDW 14.0 Plt Count 297 MPV 8.6 Sodium Potassium Chloride Carbon Dioxide Anion Gap BUN Creatinine Est GFR (CKD-EPI)AfAm Est GFR (CKD-EPI)NonAf Random Glucose Calcium Total Bilirubin AST ALT Alkaline Phosphatase Total Protein Albumin Syphilis Serology Non-reactive COVID-19 (PETER) Not detected 06/27/20 06:00 WBC RBC Hgb Hct MCV MCH MCHC RDW Plt Count MPV Sodium 138 Potassium 4.1 Chloride 108 H Carbon Dioxide 26 Anion Gap 4 L BUN 17.3 Creatinine 0.7 Est GFR (CKD-EPI)AfAm 139.73 Est GFR (CKD-EPI)NonAf 120.56 Random Glucose 79 Calcium 9.4 Total Bilirubin 0.4 AST 32 ALT 67 H Alkaline Phosphatase 61 Total Protein 7.8 Albumin 4.4 Syphilis Serology COVID-19 (PETER) lab noted - Treatment Hospital Course: Detox Protocol Followed, Detoxed Safely, Responded well, Discharged Condition Good, Rehab Referral Accepted Patient has Accepted a Rehab Referral to: [facility] medication assited treatment program - Medication Discharge Medications: Ambulatory Orders Albuterol Sulfate Inhaler - [Ventolin HFA Inhaler -] 2 inhaler PO Q4HWA PRN 09/18/19 Naloxone HCl [Narcan] 4 mg NS ASDIR PRN #1 spray 06/30/20 - Diagnosis (1) Alcohol dependence with withdrawal Status: Acute Qualifiers: Complication of substance-induced condition: uncomplicated Qualified Code(s): F10.230 - Alcohol dependence with withdrawal, uncomplicated (2) Opioid dependence with withdrawal Status: Acute (3) Hepatitis C antibody test positive Status: Chronic (4) Nicotine dependence Status: Acute Qualifiers: Nicotine product type: cigarettes Substance use status: in withdrawal Qualified Code(s): F17.213 - Nicotine dependence, cigarettes, with withdrawal (5) Substance induced mood disorder Status: Suspected - AMA Did Patient Leave Against Medical Advice: No CIWA Score - CIWA Score Nausea/Vomitin-No Nausea/No Vomiting Muscle Tremors: 1-None Visible, but [place] Anxiety: 1-Mildly Anxious Agitation: 0-Normal Activity Paroxysmal Sweats: No Perspiration Orientation: 0-Oriented Tacttile Disturbances: 0-None Auditory Disturbances: 0-None Visual Disturbances: 0-None Headache: 0-None Present CIWA-Ar Total Score: 2 COWS (PN) - Opiate Withdrawal Resting Pulse: 0= [place] 80 or Below Sweatin= No chills or Flushing Restless Observation: 0= Sits Still Pupil Size: 0= Normal to Room Light Bone or Joint Aches: 0= None Runny Nose/ Eye Tearin= None GI Upset > 30mins: 0= None Tremor Observation of Outstretched Hands: 1= Tremor [place], Not Seen Yawning Observation: 0= None Anxiety or Irritability: 1=Feels Anxious/Irritable Goose Flesh Skin: 0=Smooth Skin COWS Score: 2
== END 2020-07-01 08:10 | disposition home or self-care (01) | DRG 773 ==
LOC: YASAS 12:16 → Y3N 14:19
PROVIDERS: ADMIT Allergy & Immunology; ATTEND Allergy & Immunology
PROC: HZ2ZZZZ Detoxification Services for Substance Abuse Treatment (ICD-10-PCS; principal; 2020-06-26)
DX: F10.230 Alcohol dependence with withdrawal, uncomplicated (principal); F11.23 Opioid dependence with withdrawal; F14.20 Cocaine dependence, uncomplicated; F19.20 Other psychoactive substance dependence, uncomplicated; F12.10 Cannabis abuse, uncomplicated; F17.210 Nicotine dependence, cigarettes, uncomplicated; F19.282 Other psychoactive substance dependence with psychoactive substance-induced sleep disorder; F19.24 Other psychoactive substance dependence with psychoactive substance-induced mood disorder; B18.2 Chronic viral hepatitis C; Z91.5 Personal history of self-harm; Z88.6 Allergy status to analgesic agent; Z56.0 Unemployment, unspecified; Z59.0 Homelessness
CPT/HCPCS: 36415; 80053; 85027; 86780; Q0162; U0003

== ENCOUNTER 2023-04-17 15:03 | Inpatient (IN) | payer OTHER ==
[2023-04-17 15:33] VITALS: BMI 19.2
[2023-04-17] MEDS ORDERED: NALOXONE HCL (KLOXXADO) 8 MG SPRAY NS PRN (16:22)
[2023-04-17] MEDS ORDERED: DICYCLOMINE HCL 10 MG CAPSULE PO PRN (16:22)
[2023-04-17] MEDS ORDERED: BENZOCAINE/MENTHOL (CHLORASEPTIC ) LOZENGE MM PRN (16:22)
[2023-04-17] MEDS ORDERED: methaDONE HCL 10 MG TABLET (FOR DETOX USE ONLY) PO ONE (16:22)
[2023-04-17] MEDS ORDERED: BENZONATATE 200 MG CAPSULE PO PRN (16:22)
[2023-04-17] MEDS ORDERED: NICOTINE POLACRILEX 2 MG GUM BUC PRN (16:22)
[2023-04-17] MEDS ORDERED: NICOTINE 10 MG CARTRIDGE (INHALER) IH PRN (16:22)
[2023-04-17] MEDS ORDERED: MAG HYDROX/AL HYDROX/SIMETH 30 ML UNIT-DOSE CUP PO PRN (16:22)
[2023-04-17] MEDS ORDERED: AMMONIUM LACTATE 12% LOTION 225 GM BOTTLE TP PRN (16:22)
[2023-04-17] MEDS ORDERED: NALOXONE HCL 0.4 MG/ML VIAL IM PRN (16:22)
[2023-04-17] MEDS ORDERED: MAGNESIUM HYDROX 2400MG/30ML ORAL SUSPENSION 30 ML CUP PO PRN (16:22)
[2023-04-17] MEDS ORDERED: LOPERAMIDE HCL 2 MG CAPSULE PO PRN (16:22)
[2023-04-17] MEDS ORDERED: COLLOIDAL OATMEAL 1 BAR EACH TP PRN (16:22)
[2023-04-17] MEDS ORDERED: POLYETHYLENE GLYCOL (HEALTHYLAX) 3350 17 GM PACKET PO PRN (16:22)
[2023-04-17] MEDS ORDERED: guaiFENesin 600 MG TABLET.ER (FP) PO PRN (16:22)
[2023-04-17] MEDS ORDERED: ONDANSETRON *ODT* 4 MG TABLET SL PRN (16:22)
[2023-04-17] MEDS ORDERED: ALBUTEROL SO4 HFA INHALER IH PRN (16:26)
[2023-04-17] MEDS ORDERED: methaDONE HCL 10 MG TABLET (FOR DETOX USE ONLY) ONE (16:35)
[2023-04-17] MEDS ORDERED: NICOTINE 21 MG/24 HOURS TOPICAL PATCH ONE (16:36)
[2023-04-17] MEDS: NICOTINE 21 MG/24 HOURS TOPICAL PATCH TD SCH (16:42)
[2023-04-17] MEDS ORDERED: MELATONIN 5 MG TABLETS PO SCH (22:00)
[2023-04-17] MEDS: THIAMINE HCL 100 MG TABLET (FP) PO SCH (22:21)
[2023-04-18] MEDS: cloNIDine HCL 0.1 MG TABLET PO PRN ×3 (03:42→17:16)
[2023-04-18] MEDS: METHOCARBAMOL 500 MG TABLET PO PRN (05:14)
[2023-04-18] MEDS: ACETAMINOPHEN 325 MG TABLET (FP) PO PRN (05:46)
[2023-04-18] MEDS: diazePAM 5 MG TABLET PO PRN ×2 (09:14→17:16)
[2023-04-18] MEDS: NICOTINE 21 MG/24 HOURS TOPICAL PATCH TD SCH (09:14)
[2023-04-18] MEDS ORDERED: PRENATAL VITAMINS W/ FOLIC ACID TABLET (FP) PO SCH (10:00)
[2023-04-18] MEDS ORDERED: PNEUMOC 20-VAL CONJ-DIP CRM/PF 0.5 ML SYRINGE IM ONE (12:00)
[2023-04-18 12:02] LABS: HEMATOCRIT 36.7 % (35.4-49); HEMOGLOBIN 11.7 GM/dL (11.7-16.9); MCH 28.4 pg (25.7-33.7); MCHC 31.9 g/dl (32.0-35.9); MEAN CELL VOLUME 89.3 fl (80-96); MEAN PLT VOLUME 7.9 fl (7.5-11.1); PLATELET COUNT 317 10^3/uL (134-434); RBC 4.12 M/mm3 (4.00-5.60); RDW 14.1 % (11.9-15.9); WHITE BLOOD COUNT 8.5 K/mm3 (4.0-10.0)
[2023-04-18 12:06] LABS: POTASSIUM 4.6 mmol/L (3.5-5.1)
[2023-04-18 12:11] LABS: ALBUMIN 3.2 g/dl (3.4-5.0); CALCIUM 9.2 mg/dL (8.5-10.1)
[2023-04-18 12:12] LABS: BLOOD UREA NITROGEN 20.5 mg/dL (7-18)
[2023-04-18 12:13] LABS: CREATININE 0.8 mg/dL (0.55-1.3)
[2023-04-18 12:15] LABS: BILIRUBIN,TOTAL 0.3 mg/dL (0.2-1); TOT PROT 6.4 g/dl (6.4-8.2)
[2023-04-18] MEDS: THIAMINE HCL 100 MG TABLET (FP) PO SCH (21:59)
[2023-04-18] MEDS ORDERED: traZODone HCL 50 MG TABLET (FP) PO PRN (22:00)
[2023-04-19] MEDS: diazePAM 5 MG TABLET PO PRN (05:34)
[2023-04-19 06:12] VITALS: BP 121/79; PULSE 55; RESP 16; TEMP 97.7
[2023-04-19] MEDS: METHOCARBAMOL 500 MG TABLET PO PRN (07:22)
[2023-04-19] MEDS: cloNIDine HCL 0.1 MG TABLET PO PRN (07:22)
[2023-04-19] MEDS: ACETAMINOPHEN 325 MG TABLET (FP) PO PRN (07:23)
[2023-04-19] MEDS ORDERED: methaDONE HCL 10 MG TABLET (FOR DETOX USE ONLY) PO ONE (10:00)
[2023-04-21] MEDS ORDERED: methaDONE HCL 10 MG TABLET (FOR DETOX USE ONLY) PO ONE (10:00)
== END 2023-04-19 08:20 | disposition left against medical advice (07) | DRG 770 ==
LOC: YASAS 15:03 → Y6N 16:20
PROVIDERS: ADMIT Allergy & Immunology; ATTEND Surgery
PROC: HZ2ZZZZ Detoxification Services for Substance Abuse Treatment (ICD-10-PCS; principal; 2023-04-17)
DX: F11.23 Opioid dependence with withdrawal (principal); F14.20 Cocaine dependence, uncomplicated; F12.20 Cannabis dependence, uncomplicated; F17.210 Nicotine dependence, cigarettes, uncomplicated; F19.282 Other psychoactive substance dependence with psychoactive substance-induced sleep disorder; F19.24 Other psychoactive substance dependence with psychoactive substance-induced mood disorder; F20.9 Schizophrenia, unspecified; G47.00 Insomnia, unspecified; Z88.6 Allergy status to analgesic agent
CPT/HCPCS: 36415; 80053; 85027; 86780; 87635; 87811; 90677; 93005; 93010